=== PATIENT | female | born 1990 | race African-American/Black ===

== ENCOUNTER 2016-09-25 15:00 | Emergency (ER) | payer OTHER ==
[2016-09-25 15:18] VITALS: BP 124/76; PULSE 96; RESP 20; TEMP 97.5
--- NOTE | 2016-09-25 15:21 | ED ---
General Adult HPI - General Chief complaint: Upper Respiratory Infection Stated complaint: Congestion Time Seen by Provider: 09/25/16 15:09 Source: patient, RN notes reviewed Mode of arrival: ambulatory Limitations: no limitations - History of Present Illness Initial comments: A 18-year-old female presents with congestion and ear fullness 7 days. Patient also complains of sinus headache. Patient denies any neck pain, fever/ chills, nausea/vomiting/diarrhea. Patient states many members of her family are also sick with similar symptoms. Patient has been taking xlnw-vqm-enjpcdp cold medicines with no improvement. Patient denies any cough or shortness of breath. Patient denies any recent chest pain, abdominal pain, back pain, numbness, tingling, hematuria, photophobia, diplopia or visual changes, or any other complaints. Patient denies any chance of being today. - Related Data Previous Rx's Medication Instructions Recorded Azithromycin [Zithromax Z-pack] 250 mg PO DIRECTED #6 tab 09/25/16 Allergies Allergy/AdvReac Type Severity Reaction Status Date / Time fentanyl Allergy Anaphylaxis Verified 09/25/16 15:18 morphine Allergy Swelling Verified 09/25/16 15:18 Penicillins Allergy Rash/Hives Verified 09/25/16 15:18 Review of Systems ROS Statement: Those systems with pertinent positive or pertinent negative responses have been documented in the HPI. ROS Other: All systems not noted in ROS Statement are negative. Past Medical History Past Medical History: Asthma Additional Past Medical History / Comment(s): back pain, seasonal allergies History of Any Multi-Drug Resistant Organisms: None Reported Past Surgical History: Orthopedic Surgery Additional Past Surgical History / Comment(s): LEFT HIP SURG; RIGHT KNEE SURG Past Psychological History: No Psychological Hx Reported Smoking Status: Never smoker Past Alcohol Use History: None Reported Past Drug Use History: None Reported General Exam - General Exam Comments Initial Comments: General: The patient is awake and alert, in no distress, and does not appear acutely ill. Eye: Pupils are equal, round and reactive to light, extra-ocular movements are intact. No nystagmus. There is normal conjunctiva bilaterally. No signs of icterus. Ears: TMs pink and pearly with intact cone light bilaterally. Normal external ear canals. Nose: Nasal turbinates edematous and erythematous with mild drainage present. There is discomfort with palpation of the frontal and maxillary sinuses. Mouth and throat: Mild erythema of the posterior pharynx, no tonsillar enlargement or exudates. There are moist mucous membranes and no oral lesions. Neck: The neck is supple, there is no tenderness or JVD. Cardiovascular: There is a regular rate and rhythm. No murmur, rub or gallop is appreciated. Respiratory: Lungs are clear to auscultation, respirations are non-labored, breath sounds are equal. No wheezes, stridor, rales, or rhonchi. Musculoskeletal: Normal ROM, no tenderness. Strength 5/5. Sensation intact. Radial Pulses equal bilaterally 2+. Neurological: A&O x 3. CN II-XII intact, There are no obvious motor or sensory deficits. Coordination appears grossly intact. Speech is normal. Skin: Skin is warm and dry and no rashes or lesions are noted. Psychiatric: Cooperative, appropriate mood & affect, normal judgment. Limitations: no limitations Course Vital Signs 09/25/16 15:16 Temperature 97.5 F L Pulse Rate 96 Respiratory 20 Rate Blood Pressure 124/76 O2 Sat by Pulse 99 Oximetry Medical Decision Making - Medical Decision Making This is a 18-year-old female presents with congestion 7 days. On physical exam nasal turbinates edematous and erythematous with mild drainage present. There is discomfort with palpation of the frontal and maxillary sinuses. Patient is afebrile in the EC. Lungs are clear to auscultation bilaterally. Respirations are 20 and patient is 99% on room air. Discussed with patient that this is consistent with a sinus infection. Discussed that most cases are viral. Discussed continuation of bebs-jql-rtosrdh cold medicines, Claritin, nasal rinses nasal sprays. Discussed the patient will be given a prescription for azithromycin if her symptoms do not improve the next 3-5 days. Discussed close follow-up with her family physician. Discussed return parameters. Discussed that patient should follow up with PCP in one to 2 days or return to the EC for any worsening symptoms or for any further concerns. Patient was receptive to this plan and patient will be discharged home. Disposition Clinical Impression: Sinusitis Disposition: HOME SELF-CARE Condition: Good Instructions: Sinusitis (ED) Additional Instructions: Please continue use of [id number] decongestants, Claritin, nasal sprays or nasal rinses. Please use antibiotic if symptoms do not improve within the next 3-5 days or if symptoms are significantly worse. Please use medication as discussed. Please follow-up with family doctor in the next 2 days of symptoms have not improved. Please return to emergency room if the symptoms increase or worsen or for any other concerns. Prescriptions: Azithromycin [Zithromax Z-pack] 250 mg PO DIRECTED #6 tab Referrals: Jessy Vogt DO [Primary Care Provider] - 1-2 days Time of Disposition: 15:27
== END 2016-09-25 15:36 | disposition home or self-care (01) ==
LOC: EC 15:00
DX: J32.9 Chronic sinusitis, unspecified (principal); Z88.0 Allergy status to penicillin; Z88.5 Allergy status to narcotic agent
CPT/HCPCS: 99283

== ENCOUNTER 2017-02-10 19:05 | Emergency (ER) | payer OTHER ==
[2017-02-10 19:21] VITALS: BP 115/72; PULSE 79; RESP 18; TEMP 99.2
--- NOTE | 2017-02-10 19:39 | ED ---
Skin/Abscess/FB HPI - General Chief complaint: Skin/Abscess/Foreign Body Stated complaint: rash on waist Time Seen by Provider: 02/10/17 19:21 Source: patient, RN notes reviewed Mode of arrival: ambulatory Limitations: no limitations - History of Present Illness Initial comments: Patient is a 26-year-old female presents to the emergency room for evaluation of rash. Patient states she's noticed a rash forming under her lower abdominal fold and under her right breast about 2 weeks ago. Patient states it's very itchy and irritating. Patient states she's tried to clean it with no relief of symptoms. Patient denies fevers or chills. Patient denies drainage or swelling from the area. Patient denies any new body washes, lotions, shampoos. - Related Data Previous Rx's Medication Instructions Recorded Nystatin [Nystop] 1 applic TOPICAL TID 10 Days 02/10/17 Allergies Allergy/AdvReac Type Severity Reaction Status Date / Time fentanyl Allergy Anaphylaxis Verified 02/10/17 19:20 morphine Allergy Swelling Verified 02/10/17 19:20 Penicillins Allergy Rash/Hives Verified 02/10/17 19:20 Review of Systems ROS Statement: Those systems with pertinent positive or pertinent negative responses have been documented in the HPI. ROS Other: All systems not noted in ROS Statement are negative. Past Medical History Past Medical History: Asthma Additional Past Medical History / Comment(s): back pain, seasonal allergies History of Any Multi-Drug Resistant Organisms: None Reported Past Surgical History: Orthopedic Surgery Additional Past Surgical History / Comment(s): LEFT HIP SURG; RIGHT KNEE SURG Past Psychological History: No Psychological Hx Reported Smoking Status: Never smoker Past Alcohol Use History: None Reported Past Drug Use History: None Reported General Exam - General Exam Comments Initial Comments: Sitting in exam room, no acute distress. Limitations: no limitations General appearance: alert, in no apparent distress Head exam: Present: atraumatic, normocephalic, normal inspection Eye exam: Present: normal appearance ENT exam: Present: normal exam Neck exam: Present: normal inspection Respiratory exam: Present: normal lung sounds bilaterally. Absent: respiratory distress Cardiovascular Exam: Present: regular rate, normal rhythm, normal heart sounds Extremities exam: Present: normal inspection Back exam: Present: normal inspection Neurological exam: Present: alert, oriented X3, CN II-XII intact, normal gait Psychiatric exam: Present: normal affect, normal mood Skin exam: Present: warm, dry, other (Erythematous, moist rash under her right breast and under abdominal skin fold, consistent with yeast infection) Course Vital Signs 02/10/17 19:19 Temperature 99.2 F Pulse Rate 79 Respiratory 18 Rate Blood Pressure 115/72 O2 Sat by Pulse 99 Oximetry Medical Decision Making - Medical Decision Making Patient is a 26-year-old female since emergency room for evaluation of rash. Rash consistent with candidiasis intertrigo. Will place patient on Nystop. Advised patient to follow-up with primary care provider for reevaluation in 24- 48 hours. Patient states she understands everything that was discussed with her. Return parameters discussed. Case discussed with Dr. Suggs. Disposition Clinical Impression: Candidal intertrigo Disposition: HOME SELF-CARE Condition: Good Instructions: Skin Yeast Infection (ED) Additional Instructions: Keep area clean and dry. Apply powder as directed. Please follow up with primary care provider for reevaluation in 24-48 hours. If any new symptom arises or symptoms worsen, return to ER as soon as possible. Prescriptions: Nystatin [Nystop] 1 applic TOPICAL TID 10 Days Referrals: Jessy Vogt DO [Primary Care Provider] - 1-2 days Time of Disposition: 19:37
== END 2017-02-10 19:45 | disposition home or self-care (01) ==
LOC: EC 19:05
DX: B37.2 Candidiasis of skin and nail (principal); Z88.0 Allergy status to penicillin; Z88.5 Allergy status to narcotic agent
CPT/HCPCS: 99282

== ENCOUNTER 2017-02-13 23:18 | Emergency (ER) | payer OTHER ==
[2017-02-13 23:22] VITALS: BP 134/75; PULSE 89; RESP 18; TEMP 98.5
[2017-02-13] MEDS ORDERED: CEPHALEXIN 500MG STARTER PACK 4 CAP BTL PO STA (23:31)
--- NOTE | 2017-02-13 23:40 | ED ---
Skin/Abscess/FB HPI - General Chief complaint: Skin/Abscess/Foreign Body Stated complaint: Burn Time Seen by Provider: 02/13/17 23:23 Source: patient, RN notes reviewed, old records reviewed Mode of arrival: ambulatory Limitations: no limitations - History of Present Illness Initial comments: This is a 26-year-old female presents emergency Department with chief complaint of a rash and irritation over her lower abdominal folds. Patient reports that she was seen in the emergency department 2 days ago and started on nystatin cream. Patient reports that it was doing somewhat better over the original area but has now spread to the left lower side. She reports that she's noticed a little bit of white drainage from the area. She reports that she's noticed some warmth also extending from the area. Patient denies any fever or chills. Denies any other areas of redness or itching. Patient states that she thinks that it became worse after he scratched it yesterday and noticed a blister started to develop. Patient denies any recent fever, chills, shortness of breath , chest pain, back pain, abdominal pain, nausea vomiting, numbness or tingling, dysuria or hematuria, constipation or diarrhea, headaches or visual changes, or any other current symptoms - Related Data Home Medications Medication Instructions Recorded Confirmed Albuterol Inhaler [Ventolin Hfa 2 puff INHALATION RT-QID PRN 02/13/17 02/13/17 Inhaler] Previous Rx's Medication Instructions Recorded Cephalexin [Keflex] 500 mg PO Q6HR #28 cap 02/13/17 Nystatin 100,000 Unit/gm Powd 1 applic TOPICAL BID #60 gm 02/13/17 [Mycostatin Powder] Allergies Allergy/AdvReac Type Severity Reaction Status Date / Time fentanyl Allergy Anaphylaxis Verified 02/13/17 23:36 morphine Allergy Rash/Hives Verified 02/13/17 23:36 Penicillins Allergy Unknown Verified 02/13/17 23:36 Childhood Review of Systems ROS Statement: Those systems with pertinent positive or pertinent negative responses have been documented in the HPI. ROS Other: All systems not noted in ROS Statement are negative. Past Medical History Past Medical History: Asthma Additional Past Medical History / Comment(s): back pain, seasonal allergies History of Any Multi-Drug Resistant Organisms: None Reported Past Surgical History: Orthopedic Surgery Additional Past Surgical History / Comment(s): LEFT HIP SURG; RIGHT KNEE SURG Past Psychological History: No Psychological Hx Reported Smoking Status: Never smoker Past Alcohol Use History: None Reported Past Drug Use History: None Reported General Exam - General Exam Comments Initial Comments: Physical well-appearing 18-year-old female. No acute distress. Limitations: no limitations General appearance: alert Head exam: Present: atraumatic, normocephalic, normal inspection Eye exam: Present: normal appearance, PERRL, EOMI. Absent: scleral icterus, conjunctival injection, periorbital swelling ENT exam: Present: normal exam, mucous membranes moist Neck exam: Present: normal inspection. Absent: tenderness, meningismus, lymphadenopathy Respiratory exam: Present: normal lung sounds bilaterally. Absent: respiratory distress, wheezes, rales, rhonchi, stridor Cardiovascular Exam: Present: regular rate, normal rhythm, normal heart sounds. Absent: systolic murmur, diastolic murmur, rubs, gallop, clicks GI/Abdominal exam: Present: soft, normal bowel sounds, other (Patient has area of erythema over the lower left side of the abdomen. It appears to have a superficial candidate I'll infection. There is some minor drainage from the area.). Absent: distended, tenderness, guarding, rebound, rigid Extremities exam: Present: normal inspection, full ROM, normal capillary refill. Absent: tenderness, pedal edema, joint swelling, calf tenderness Back exam: Present: normal inspection Neurological exam: Present: alert, oriented X3, CN II-XII intact Psychiatric exam: Present: normal affect, normal mood Skin exam: Present: warm, dry, intact, normal color. Absent: rash Course Vital Signs 02/13/17 23:19 Temperature 98.5 F Pulse Rate 89 Respiratory 18 Rate Blood Pressure 134/75 O2 Sat by Pulse 98 Oximetry Medical Decision Making - Medical Decision Making This is a 26-year-old female presents emergency Department with chief complaint of a rash and irritation over her lower abdominal folds. Patient reports that she was seen in the emergency department 2 days ago and started on nystatin cream. Patient reports that it was doing somewhat better over the original area but has now spread to the left lower side. She reports that she's noticed a little bit of white drainage from the area. Patient has an area of erythema over the lower abdominal fold. It appears to be a cellulitis as well as a superficial candidate I'll infection. Patient will be started on Keflex, advised to continue to use the nystatin cream. Patient agrees to this treatment plan will comply. Return parameters were discussed. I also luzmaria a line around the area of redness and advised her to monitor this headache is worse to return to emergency department. Disposition Clinical Impression: Candidal intertrigo, Abdominal wall cellulitis Disposition: HOME SELF-CARE Condition: Good Instructions: Cellulitis (ED) Additional Instructions: Patient advised to complete entire antibiotic prescription. Continue to keep the area dry and to apply the nystatin cream and powder over the area. Monitor for any increased signs of redness and to return to the emergency department if he continues to worsen after 2 days of antibiotic. Prescriptions: Cephalexin [Keflex] 500 mg PO Q6HR #28 cap Nystatin 100,000 Unit/gm Powd [Mycostatin Powder] 1 applic TOPICAL BID #60 gm Referrals: Jessy Vogt DO [Primary Care Provider] - 1-2 days Time of Disposition: 23:38
== END 2017-02-13 23:52 | disposition home or self-care (01) ==
LOC: EC 23:18
DX: B37.2 Candidiasis of skin and nail (principal); L03.311 Cellulitis of abdominal wall; Z88.0 Allergy status to penicillin; Z88.1 Allergy status to other antibiotic agents; Z88.5 Allergy status to narcotic agent
CPT/HCPCS: 87070; 87077; 87186; 87205; 99284

== ENCOUNTER 2017-03-03 16:02 | Emergency (ER) | payer OTHER ==
[2017-03-03 16:13] VITALS: BP 119/73; PULSE 80; RESP 20; TEMP 98.5
--- NOTE | 2017-03-03 16:22 | ED ---
Skin/Abscess/FB HPI - General Chief complaint: Skin/Abscess/Foreign Body Stated complaint: Rash/abscess Time Seen by Provider: 03/03/17 16:19 Source: patient, RN notes reviewed Mode of arrival: ambulatory Limitations: no limitations - History of Present Illness Initial comments: 26-year-old female presents emergency Department chief complaint rash. She stateslast few days. She states it's in her axilla regions, abdomen region. States her small bump November. She states that she said he is infection in past and that maybe this is similar. She states they are very itchy and states that she scratched some. Patient denies any fevers or chills. Patient denies any new living environment new products including soaps, lotions, detergents - Related Data Home Medications Medication Instructions Recorded Confirmed Albuterol Inhaler [Ventolin Hfa 2 puff INHALATION RT-QID PRN 02/13/17 02/13/17 Inhaler] Previous Rx's Medication Instructions Recorded Cephalexin [Keflex] 500 mg PO Q6HR #28 cap 02/13/17 Nystatin 100,000 Unit/gm Powd 1 applic TOPICAL BID #60 gm 02/13/17 [Mycostatin Powder] Permethrin 5% Cream [Elimite] 1 applic TOPICAL ONCE #60 gram 03/03/17 Triamcinolone 0.1% Cream [Kenalog] 1 applicatio TOPICAL BID #15 gram 03/03/17 hydrOXYzine HCL [Atarax] 25 mg PO TID PRN #15 tab 03/03/17 Allergies Allergy/AdvReac Type Severity Reaction Status Date / Time fentanyl Allergy Anaphylaxis Verified 03/03/17 16:13 morphine Allergy Rash/Hives Verified 03/03/17 16:13 Penicillins Allergy Unknown Verified 03/03/17 16:13 Childhood Review of Systems ROS Statement: Those systems with pertinent positive or pertinent negative responses have been documented in the HPI. ROS Other: All systems not noted in ROS Statement are negative. Past Medical History Past Medical History: Asthma Additional Past Medical History / Comment(s): back pain, seasonal allergies History of Any Multi-Drug Resistant Organisms: None Reported Past Surgical History: Orthopedic Surgery Additional Past Surgical History / Comment(s): LEFT HIP SURG; RIGHT KNEE SURG Past Psychological History: No Psychological Hx Reported Smoking Status: Never smoker Past Alcohol Use History: None Reported Past Drug Use History: None Reported General Exam Limitations: no limitations General appearance: alert, in no apparent distress Neck exam: Present: normal inspection. Absent: tenderness, meningismus, lymphadenopathy Respiratory exam: Present: normal lung sounds bilaterally. Absent: respiratory distress, wheezes, rales, rhonchi, stridor Cardiovascular Exam: Present: regular rate, normal rhythm, normal heart sounds. Absent: systolic murmur, diastolic murmur, rubs, gallop, clicks Skin exam: Present: rash (Small areas of papular rash with excoriations noted to right axilla, torso region) Course Vital Signs 03/03/17 16:11 Temperature 98.5 F Pulse Rate 80 Respiratory 20 Rate Blood Pressure 119/73 O2 Sat by Pulse 99 Oximetry Medical Decision Making - Medical Decision Making 26-year-old female presented for rash. Patient appears to have some sort of insect bites. Patient denies any new living environment. Patient be given Atarax Elimite and Kenalog cream. Disposition Clinical Impression: Insect bites Disposition: HOME SELF-CARE Condition: Stable Instructions: Insect Bite or Sting (ED) Additional Instructions: Please return to the Emergency Department if symptoms worsen or any other concerns. Prescriptions: hydrOXYzine HCL [Atarax] 25 mg PO TID PRN #15 tab PRN Reason: itchiness Permethrin 5% Cream [Elimite] 1 applic TOPICAL ONCE #60 gram Triamcinolone 0.1% Cream [Kenalog] 1 applicatio TOPICAL BID #15 gram Referrals: Jessy Vogt DO [Primary Care Provider] - 1-2 days Time of Disposition: 16:22
== END 2017-03-03 16:25 | disposition home or self-care (01) ==
LOC: EC 16:02
DX: S40.861A Insect bite (nonvenomous) of right upper arm, initial encounter (principal); S30.861A Insect bite (nonvenomous) of abdominal wall, initial encounter; Z88.0 Allergy status to penicillin; Z88.5 Allergy status to narcotic agent; W57.XXXA Bitten or stung by nonvenomous insect and other nonvenomous arthropods, initial encounter
CPT/HCPCS: 99282

== ENCOUNTER → 2019-03-14 | Outpatient (CLI) | payer OTHER ==
--- NOTE | 2019-03-14 14:04 | CT ---
EXAMINATION TYPE: CT sinus wo con DATE OF EXAM: 03/14/2019 COMPARISON: None HISTORY: 28-year-old female Chronic sinusitis. Otitis media left ear. CT DLP: 572 mGycm Automated exposure control for dose reduction was used. TECHNIQUE: Noncontrast axial views of the paranasal sinuses were obtained. Coronal reconstructions pe rformed. FINDINGS: PARANASAL SINUSES: Moderate mucosal thickening left maxillary and bilateral ethmoid sinuses. Frontal sinuses are relatively pneumatized. Scattered trace mucosal thickening within the sphenoid sinuses and mild within the right maxillary si nus. 8 mm mucosal retention cyst posterior left sphenoid sinus. There is no air-fluid level. Reactive sean- osteogenesis is not seen. There is no destruction of the osseous scott of the paranasal sinuses. THE NASAL CAVITY: The osteomeatal complexes are patent. Minimal undulation of the nasal septum. The imaged brain and orbits are normal in appearance. Mastoid air cells and middle ear cavities are well pneumatized. Reformatted images confirm above findings. IMPRESSION: 1. Moderate chronic left maxillary and bilateral ethmoid sinus disease. 2. Additional scattered trace to mild sphenoid and right maxillary sinus disease. 3. The mastoid air cells and middle ear cavities are clear.
== END | disposition home or self-care (01) ==
LOC: RADCTMAIN 12:23
PROVIDERS: ATTEND Internal Medicine
DX: J32.0 Chronic maxillary sinusitis (principal); H66.92 Otitis media, unspecified, left ear
CPT/HCPCS: 70486

== ENCOUNTER → 2019-06-16 | Outpatient (CLI) | payer OTHER ==
--- NOTE | 2019-06-17 09:51 | CT ---
EXAMINATION TYPE: CT iac wo/w con DATE OF EXAM: 06/16/2019 COMPARISON: CT 04/02/2011 HISTORY: Left ear hearing loss x couple of months. CT DLP: 285.4 mGycm Automated exposure control for dose reduction was used. CONTRAST: CT scan of the IACs is performed without and with IV Contrast, patient injected with 100ml mL of Isov ue 300. FINDINGS: The external auditory canals are patent bilaterally. Mastoid air cells show no evidence of abnormal opacification bilaterally. The middle ear ossicles are symmetric and unremarkable. There is no evidence of suspicious surrounding soft tissue density to suggest cholesteatoma. The scutum is preserved bilaterally. The cochlea and the semicircular canals are symmetric and unremarkable. Ves tibular aqueduct and internal carotid canal appear unremarkable. Temporomandibular joints are mainta ined bilaterally. No abnormal enhancement following contrast administration. Postop changes noted to the posterior occipital bone inferiorly as on prior IMPRESSION: No significant abnormality seen to account for patient's symptoms.
== END | disposition home or self-care (01) ==
LOC: RADCTMAIN 17:37
PROVIDERS: ATTEND Otolaryngology Otolaryngology/Facial Plastic Surgery
DX: H93.293 Other abnormal auditory perceptions, bilateral (principal)
CPT/HCPCS: 70482; Q9967

== ENCOUNTER → 2019-07-29 | Outpatient (CLI) | payer OTHER ==
--- NOTE | 2019-07-30 10:06 | MR ---
EXAMINATION TYPE: MR brain and iac wo/w con DATE OF EXAM: 07/29/2019 5:32 PM COMPARISON: April 27, 2013 HISTORY: Hearing loss TECHNIQUE: Multiplanar and multispin-echo imaging of the brain was performed both before and after the administr ation of contrast. High-resolution images are obtained of the internal auditory canals performed uti lizing 9 mL intravenous Gadavist contrast. The ventricles, basal cisterns and sulci overlying the cerebral convexities are within normal limits. There is no evidence for midline shift or mass effect. Acute intracranial hemorrhage or extra-axial collection is not evident. There are no abnormal areas of increased or decreased signal intensity within the brain parenchyma. High-resolution imaging of the internal auditory canals fails demonstrate evidence for an enhancing a coustic schwannoma or cerebellopontine cistern angle mass. Following contrast administration, there is no evidence for pathologic enhancement or enhancing mass. The paranasal sinuses and mastoid air cells are well-aerated. 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 Decompressive craniotomy changes redemonstrated. IMPRESSION: 1. No evidence of acoustic schwannoma or cerebellopontine angle mass. 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
== END ==
LOC: RADMRIMAIN 16:38
PROVIDERS: ATTEND Otolaryngology Otolaryngology/Facial Plastic Surgery
DX: G93.5 Compression of brain (principal)
CPT/HCPCS: 70553; A9585

== ENCOUNTER → 2019-11-24 | Outpatient (CLI) | payer OTHER ==
--- NOTE | 2019-11-24 21:30 | CT ---
EXAMINATION TYPE: CT sinus wo con DATE OF EXAM: 11/24/2019 COMPARISON: 03/14/2019 HISTORY: Deviated nasal septum, hypertrophy CT DLP: 526.40 mGycm CONTRAST: None The paranasal sinuses are examined in the axial plane at 2 mm thick sections. Reconstructed images i n the coronal plane were obtained. There is mild dental amalgam scatter artifact The maxillary sinuses are clear. The ethmoid air cells are clear. The sphenoid sinuses are clear. The frontal sinuses are clear. The septum is evaluated. There is mild septal deviation to the right. The ostiomeatal units are patent. IMPRESSIONS: 1. No acute paranasal sinus disease. 2. Septal deviation to the right
== END | disposition home or self-care (01) ==
LOC: RADCTMAIN 16:46
PROVIDERS: ATTEND Otolaryngology Otolaryngology/Facial Plastic Surgery
DX: J34.2 Deviated nasal septum (principal); J30.9 Allergic rhinitis, unspecified
CPT/HCPCS: 70486

== ENCOUNTER 2020-11-30 10:17 | Day surgery (SDC) | payer OTHER ==
[~2020-11-30 10:17] MED LIST: DEXAMETHASONE SOD PHOSPHATE 4 MG/ML 1 ML VIAL IV ONE; LACTATED RINGERS 1,000 ML IV SCH; LIDOCAINE 1% (10MG/ML) FOR IV START INTRADERMA PRN; MIDAZOLAM 2 MG/2 ML VIAL IV PRN; ONDANSETRON 4 MG/2 ML VIAL IVP ONE; Pre Op ABX Message 1 EACH MISC MISCELLANE ONE
[2020-11-30] MEDS ORDERED: MIDAZOLAM 2 MG/2 ML VIAL IVP ONE (11:49)
[2020-11-30] MEDS ORDERED: CLINDAMYCIN 600 MG in DEXTROSE 5% IN WATER 50 ML IVPB STA ×2 (11:51)
[2020-11-30] MEDS ORDERED: SUCCINYLCHOLINE CHLORIDE 100 MG/5 ML SYR IV ONE (12:04)
[2020-11-30] MEDS ORDERED: MIDAZOLAM 2 MG/2 ML VIAL ONE (12:04)
[2020-11-30] MEDS ORDERED: PHENYLEPHRINE-0.9% NACL SYG 1,000 MCG/10 ML SYRINGE ONE (12:04)
[2020-11-30] MEDS ORDERED: LIDOCAINE 1% INJ 10MG/ML (20 ML MDV) ONE (12:04)
[2020-11-30] MEDS ORDERED: ROPIVACAINE 5 MG/ML 30 ML VIAL ONE (12:04)
[2020-11-30] MEDS ORDERED: PROPOFOL 10 MG/ML 20 ML VIAL IV ONE (12:04)
[2020-11-30] MEDS ORDERED: ROCURONIUM 10 MG/ML (5 ML VIAL) IV ONE (12:04)
[2020-11-30] MEDS ORDERED: DEXAMETHASONE SOD PHOSPHATE 4 MG/ML 1 ML VIAL ONE (12:04)
[2020-11-30] MEDS ORDERED: fentaNYL (PF) 50 MCG/ML 2 ML AMP ONE (12:04)
[2020-11-30] MEDS ORDERED: methylPREDNISolone ACETATE 40 MG/ML 1 ML VIAL INJ ONE (12:54)
[2020-11-30] MEDS ORDERED: LACTATED RINGERS 1,000 ML IV ONE (12:55)
--- NOTE | 2020-11-30 13:11 | XR ---
Limited calcaneus HISTORY: Heel spur Single intraoperative C-arm image documents the procedure
--- NOTE | 2020-11-30 13:12 | FL ---
Fluoroscopy HISTORY: Calcaneal spur 9 seconds fluoroscopy time supplied to the referring clinician. 1 intraoperative C-arm images docume nt the procedure. See dictated report from surgery.
[2020-11-30 13:29] VITALS: TEMP 98.8
[2020-11-30] MEDS: HYDROmorphone 0.5 MG/0.5 ML SYRINGE IVP PRN ×2 (13:31→13:36)
--- NOTE | 2020-11-30 13:35 | P.OP ---
Preoperative Diagnosis: 1. Plantar fasciitis right foot 2. Gastroc equinus right leg 3. Plantar calcaneal spur right foot Postoperative Diagnosis: 1. Same 2. Same 3. Same Procedure(s) Performed: 1. Gastroc recession right leg 2. Plantar fascial release right foot 3. Excision of calcaneal spur right foot Implants: None Anesthesia: VIDYA Surgeon: Ahsan Nevarez Estimated Blood Loss (ml): 2 Pathology: none sent Condition: stable Disposition: PACU Description of Procedure: Prior to the patient being brought to the operating room, anesthesia administered nerve block on the right leg utilizing ultrasonic guidance and mild sedation. The patient was then brought into the operating room and placed on table supine position. Timeout was taken to confirm correct patient identifiers, correct procedure, and correct site of surgery. When the room was in agreement the patient was placed under general anesthetic. A well-padded tourniquet was placed on the right thigh. A bump was placed underneath the left hip to further externally rotate the right leg. And then the right leg was prepped and draped usual manner. The leg was exsanguinated and the tourniquet inflated to 250 mmHg Attention was first directed to the posterior aspect of the right leg where a linear incision was made just distal to the gastroc muscle belly. The incision was deepened down through the subcutaneous layer being careful to identify, avoid, and retract all neurovascular structures and cauterize any bleeding ves sels. Blunt dissection was continued down to the deep fascia. The deep fascia was incised exposing the aponeurosis of the gastroc muscle belly. The deep fascia was bluntly reflected off of the aponeurosis. Scalpel was used to create a transverse incision from lateral to medial through the aponeurosis to the level the muscle belly taking care to not cause excessive trauma to the muscle tissue itself. Once that was completed ankle was dorsiflexed and a 2 cm gap was created between the 2 ends of the aponeurosis, indicating a full release. The wound was then irrigated thoroughly with antibiotic saline the subcutaneous closure was done with 3-0 Monocryl and skin closure done with 30 side effects in a running subcuticular manner. Then attention was directed to the right foot. With the right foot essentially in a lateral position of the bed the C-arm was brought in so that anatomic landmarks could be identified. And the metallic pointer was used to identify the plantar calcaneal spur and a skin line was made in that area. The incision was made through that skin line and deepened through the subcutaneous layer being careful to identify, avoid, and retract any neurovascular structures and cauterize any bleeding vessels. Blunt dissection was continued down to level of the plantar fascia at its insertion on the medial calcaneal tuberosity. Blunt instrumentation was inserted dorsally and plantarly to the plantar fascial to free the surrounding soft tissue. A midline remi was made to identify the center of the calcaneus on the plantar surface of the skin of the right heel. Sharp instrumentation was used to resect the plantar fascial to this point. This is easily palpable as it was being done. The great toe was dorsiflexed during the course of the release and a palpable release could be felt. Once the plantar fascia release was completed, a pituitary Ronguer was inserted down to level of the fracture calcaneal spur. Under fluoroscopic visualization the spur was able to be grasped with the instrument and removed. Several attempts were performed to remove as much of the spurs possible. Once that was completed a rasp was used to smooth the bone surface in the area. Fluoroscopy confirmed complete resection of the spur. The wound was then irrigated with antibiotic saline. The subcutaneous tissue was closed with 3-0 Monocryl and the skin closure done with 3-0 nylon Dermabond glue was applied to the Incision only and allowed to dry then Steri- Strips are placed across incision. Nonadherent gauze placed over both incisions and a bulky dry dressing applied to the right leg ankle and foot. The tourniquet was released and capillary refill return to all digits on the right foot. The patient was then placed in a well molded, well-padded plaster posterior mold sugar tong splint. The ankle was held in neutral position as the splint dried. Once the splint had dried anesthesia was reversed and the patient was taken recovery with vital signs stable.
[2020-11-30 13:41] VITALS: RESP 16
[2020-11-30] MEDS ORDERED: HYDROcodone/APAP 5-325MG 1 EACH TAB ONE (15:13)
[2020-11-30] MEDS ORDERED: HYDROcodone/APAP 5-325MG 1 EACH TAB PO ONE (15:15)
[2020-11-30 15:28] VITALS: BP 111/70; PULSE 80
--- NOTE | 2020-12-02 20:59 | P.ANPRN ---
Procedure Note - Anesthesia - Nerve Block Performed Right Popliteal Single Time Out Performed: Yes Date of Procedure: 11/30/20 Procedure Start Time: 10:38 Procedure Stop Time: 10:41 Location of Patient: PreOp Indication: Acute Post-Operative Pain, Requested by Surgeon Sedation Type: Sedate with meaningful contact maintained Preparation: Sterile Prep Position: Left Lateral Needle Types: Pajunk Needle Gauge: 21 Ultrasound used to visualize needle placement: Yes Ultrasound used to observe medication spread: Yes Blood Aspirated: No Pain Paresthesia on Injection Noted: No Resistance on Injection: Normal Image Stored and Saved: Yes Events: Uneventful and Well Tolerated (ropi .5% 20cc plus dexamethasone 4mg)
--- NOTE | 2020-12-02 21:00 | P.ANPRN ---
Procedure Note - Anesthesia - Nerve Block Performed Right Saphenous/Obturator Single Time Out Performed: Yes Date of Procedure: 11/30/20 Procedure Start Time: 10:42 Procedure Stop Time: 10:45 Location of Patient: PreOp Indication: Acute Post-Operative Pain, Requested by Surgeon Sedation Type: Sedate with meaningful contact maintained Preparation: Sterile Prep Position: Supine Needle Types: Pajunk Needle Gauge: 21 Ultrasound used to visualize needle placement: Yes Ultrasound used to observe medication spread: Yes Blood Aspirated: No Pain Paresthesia on Injection Noted: No Resistance on Injection: Normal Image Stored and Saved: Yes Events: Uneventful and Well Tolerated (ropi .5% 15cc)
== END 2020-11-30 16:08 | disposition home or self-care (01) ==
LOC: OR 10:17
PROVIDERS: ATTEND Podiatrist
DX: M72.2 Plantar fascial fibromatosis (principal); M21.6X1 Other acquired deformities of right foot; M77.31 Calcaneal spur, right foot; M62.471 Contracture of muscle, right ankle and foot; S92.044A Nondisplaced other fracture of tuberosity of right calcaneus, initial encounter for closed fracture; F41.9 Anxiety disorder, unspecified; J45.909 Unspecified asthma, uncomplicated; K08.89 Other specified disorders of teeth and supporting structures; Z79.899 Other long term (current) drug therapy; Z79.1 Long term (current) use of non-steroidal anti-inflammatories (NSAID); Z97.3 Presence of spectacles and contact lenses; Z88.0 Allergy status to penicillin; Z88.5 Allergy status to narcotic agent; Z98.890 Other specified postprocedural states; Y93.9 Activity, unspecified
CPT/HCPCS: 27687; 28119; 64447; 81025; 64445; 76942; 73650; J2250; J1030; J1100; J2405; J2001; J3010; J2795; J2370; J0330; J2704; J1170; 64450

== ENCOUNTER 2021-03-06 10:41 | Emergency (ER) | payer OTHER ==
[2021-03-06 10:56] VITALS: TEMP 98.7
[2021-03-06] MEDS ORDERED: KETOROLAC 15 MG/ML 1 ML VIAL IVP STA (11:04)
[2021-03-06] MEDS ORDERED: SODIUM CHLORIDE 0.9% 1,000 ML IV STA (11:04)
[2021-03-06] MEDS ORDERED: SODIUM CHLORIDE 0.9% 500 ML 500 ML IV STA (11:04)
[2021-03-06] MEDS ORDERED: ONDANSETRON 4 MG/2 ML VIAL IVP STA (11:04)
[2021-03-06 11:25] LABS: Basophils % (A) 1 %; Eosinophils # (A) 0.1 k/uL (0-0.7); Eosinophils % (A) 2 %; HCT 40.2 % (34.0-46.0); HGB 13.1 gm/dL (11.4-16.0); Lymphocytes # (A) 1.7 k/uL (1.0-4.8); Lymphocytes % (A) 25 %; MCH 30.5 pg (25.0-35.0); MCHC 32.5 g/dL (31.0-37.0); MCV 93.7 fL (80.0-100.0); Mean Platelet Volume 9.9; Monocytes # (A) 0.3 k/uL (0-1.0); Monocytes % (A) 4 %; Neutrophils # (A) 4.4 k/uL (1.3-7.7); Neutrophils % (A) 67 %; Platelet Count 206 k/uL (150-450); RBC 4.29 m/uL (3.80-5.40); WBC 6.5 k/uL (3.8-10.6)
[2021-03-06 11:36] LABS: ALT 12 U/L (4-34); AST 19 U/L (14-36); African American GFR (CKD) >90 (>60 ml/min/1.73 sqM); Alkaline Phosphatase 73 U/L (38-126); Amylase 58 U/L (30-110); Anion Gap 6 mmol/L; Blood Urea Nitrogen 5 mg/dL (7-17); Calcium 8.9 mg/dL (8.4-10.2); Carbon Dioxide 20 mmol/L (22-30); Chloride 114 mmol/L (98-107); Glucose 91 mg/dL (74-99); Lipase 91 U/L (23-300); Non-African American GFR(CKD) >90 (>60 ml/min/1.73 sqM); Potassium 4.2 mmol/L (3.5-5.1); Sodium 140 mmol/L (137-145); Total Bilirubin 0.2 mg/dL (0.2-1.3); Total Protein 6.6 g/dL (6.3-8.2)
--- NOTE | 2021-03-06 11:50 | ED ---
Abdominal Pain HPI - General Chief Complaint: Abdominal Pain Stated Complaint: abd pain, nausea Time Seen by Provider: 03/06/21 10:57 Source: patient, RN notes reviewed Mode of arrival: ambulatory Limitations: no limitations - History of Present Illness Initial Comments: This a 30-year-old female presents emergency Department with chief complaint of left sided abdominal pain, left flank pain patient states pain started Thursday progressive worsening. Patient's [facility] yesterday and had lab work and states she was sent home with Juan. She states she's continuation of pain she does have a history kidney stones. Patient was found have moderate amount Bactrim but a urinalysis yesterday. No reported fever no diarrhea no constipation. - Related Data Home Medications Medication Instructions Recorded Confirmed Budesonide/Formoterol Fumarate 2 puff INHALATION RT-BID PRN 03/06/21 03/06/21 [Symbicort 80-4.5 Mcg Inhaler] Butalb/APAP/Caff 50-325-40Mg 1 tab PO BID PRN 03/06/21 03/06/21 [Fioricet 50-325-40] Ibuprofen [Motrin] 800 mg PO TID PRN 03/06/21 03/06/21 medroxyPROGESTERone [Depo-Provera] 150 mg IM Q90D 03/06/21 03/06/21 Previous Rx's Medication Instructions Recorded Ketorolac [Toradol] 10 mg PO Q8HR #15 tab 03/06/21 Metoclopramide [Reglan] 10 mg PO TID PRN #15 tab 03/06/21 Nitrofurantoin Monohyd/M-Cryst 100 mg PO Q12HR #10 cap 03/06/21 [Macrobid] Allergies Allergy/AdvReac Type Severity Reaction Status Date / Time fentanyl Allergy Anaphylaxis Verified 03/06/21 11:30 morphine Allergy Rash/Hives Verified 03/06/21 11:30 Penicillins Allergy Unknown Verified 03/06/21 11:30 Childhood Review of Systems ROS Statement: Those systems with pertinent positive or pertinent negative responses have been documented in the HPI. ROS Other: All systems not noted in ROS Statement are negative. Past Medical History Past Medical History: Asthma Additional Past Medical History / Comment(s): back pain, seasonal allergies History of Any Multi-Drug Resistant Organisms: None Reported Past Surgical History: Orthopedic Surgery Additional Past Surgical History / Comment(s): LEFT HIP SURG; RIGHT KNEE SURG, gastric resection Past Psychological History: No Psychological Hx Reported Smoking Status: Never smoker Past Alcohol Use History: None Reported Past Drug Use History: None Reported General Exam Limitations: no limitations General appearance: alert, in no apparent distress Head exam: Present: atraumatic, normocephalic, normal inspection Eye exam: Present: normal appearance, PERRL, EOMI. Absent: scleral icterus, conjunctival injection, periorbital swelling ENT exam: Present: normal exam, normal oropharynx, mucous membranes moist Neck exam: Present: full ROM Respiratory exam: Present: normal lung sounds bilaterally. Absent: respiratory distress, wheezes, rales, rhonchi, stridor Cardiovascular Exam: Present: regular rate, normal rhythm, normal heart sounds. Absent: systolic murmur, diastolic murmur, rubs, gallop, clicks GI/Abdominal exam: Present: soft, tenderness (Mild to moderate of left-sided), normal bowel sounds. Absent: distended, guarding, rebound, rigid Back exam: Present: CVA tenderness (L). Absent: CVA tenderness (R) Skin exam: Present: warm, dry, intact, normal color. Absent: rash Course Vital Signs 03/06/21 10:53 Temperature 98.7 F Pulse Rate 64 Respiratory 18 Rate Blood Pressure 127/87 O2 Sat by Pulse 98 Oximetry Medical Decision Making - Medical Decision Making 30-year-old presented for left flank pain. Patient's urinalysis yesterday shows evidence of urinary tract infection today there is minimal bacteria though she is symptomatic CT shows evidence of kidney stones in the past and stone. Patient we discharged in stable condition return parameters were discussed. - Lab Data Result diagrams: 03/06/21 11:14 03/06/21 11:14 Lab Results 03/06/21 03/06/21 03/06/21 Range/Units 11:14 11:14 11:14 WBC 6.5 (3.8-10.6) k/uL RBC 4.29 (3.80-5.40) m/uL Hgb 13.1 (11.4-16.0) gm/dL Hct 40.2 (34.0-46.0) % MCV 93.7 (80.0-100.0) fL MCH 30.5 (25.0-35.0) pg MCHC 32.5 (31.0-37.0) g/dL RDW 13.0 (11.5-15.5) % Plt Count 206 (150-450) k/uL MPV 9.9 Neutrophils % 67 % Lymphocytes % 25 % Monocytes % 4 % Eosinophils % 2 % Basophils % 1 % Neutrophils # 4.4 (1.3-7.7) k/uL Lymphocytes # 1.7 (1.0-4.8) k/uL Monocytes # 0.3 (0-1.0) k/uL Eosinophils # 0.1 (0-0.7) k/uL Basophils # 0.0 (0-0.2) k/uL Sodium 140 (137-145) mmol/L Potassium 4.2 (3.5-5.1) mmol/L Chloride 114 H (98-107) mmol/L Carbon Dioxide 20 L (22-30) mmol/L Anion Gap 6 mmol/L BUN 5 L (7-17) mg/dL Creatinine 0.63 (0.52-1.04) mg/dL Est GFR (CKD-EPI)AfAm >90 (>60 ml/min/1.73 sqM) Est GFR (CKD-EPI)NonAf >90 (>60 ml/min/1.73 sqM) Glucose 91 (74-99) mg/dL Plasma Lactic Acid Lex 0.8 (0.7-2.0) mmol/L Calcium 8.9 (8.4-10.2) mg/dL Total Bilirubin 0.2 (0.2-1.3) mg/dL AST 19 (14-36) U/L ALT 12 (4-34) U/L Alkaline Phosphatase 73 (38-126) U/L Total Protein 6.6 (6.3-8.2) g/dL Albumin 4.0 (3.5-5.0) g/dL Amylase 58 (30-110) U/L Lipase 91 (23-300) U/L Urine Color Urine Appearance (Clear) Urine pH (5.0-8.0) Ur Specific [place] (1.001-1.035) Urine Protein (Negative) Urine Glucose (UA) (Negative) Urine Ketones (Negative) Urine Blood (Negative) Urine Nitrite (Negative) Urine Bilirubin (Negative) Urine Urobilinogen (<2.0) mg/dL Ur Leukocyte Esterase (Negative) Urine RBC (0-5) /hpf Urine WBC (0-5) /hpf Ur Squamous Epith Cells (0-4) /hpf Urine Bacteria (None) /hpf Urine Mucus (None) /hpf Urine HCG, Qual (Not Detectd) 03/06/21 03/06/21 Range/Units 12:22 12:22 WBC (3.8-10.6) k/uL RBC (3.80-5.40) m/uL Hgb (11.4-16.0) gm/dL Hct (34.0-46.0) % MCV (80.0-100.0) fL MCH (25.0-35.0) pg MCHC (31.0-37.0) g/dL RDW (11.5-15.5) % Plt Count (150-450) k/uL MPV Neutrophils % % Lymphocytes % % Monocytes % % Eosinophils % % Basophils % % Neutrophils # (1.3-7.7) k/uL Lymphocytes # (1.0-4.8) k/uL Monocytes # (0-1.0) k/uL Eosinophils # (0-0.7) k/uL Basophils # (0-0.2) k/uL Sodium (137-145) mmol/L Potassium (3.5-5.1) mmol/L Chloride (98-107) mmol/L Carbon Dioxide (22-30) mmol/L Anion Gap mmol/L BUN (7-17) mg/dL Creatinine (0.52-1.04) mg/dL Est GFR (CKD-EPI)AfAm (>60 ml/min/1.73 sqM) Est GFR (CKD-EPI)NonAf (>60 ml/min/1.73 sqM) Glucose (74-99) mg/dL Plasma Lactic Acid Lex (0.7-2.0) mmol/L Calcium (8.4-10.2) mg/dL Total Bilirubin (0.2-1.3) mg/dL AST (14-36) U/L ALT (4-34) U/L Alkaline Phosphatase (38-126) U/L Total Protein (6.3-8.2) g/dL Albumin (3.5-5.0) g/dL Amylase (30-110) U/L Lipase (23-300) U/L Urine Color Light Yellow Urine Appearance Clear (Clear) Urine pH 6.5 (5.0-8.0) Ur Specific [place] 1.009 (1.001-1.035) Urine Protein Negative (Negative) Urine Glucose (UA) Negative (Negative) Urine Ketones Negative (Negative) Urine Blood Moderate H (Negative) Urine Nitrite Negative (Negative) Urine Bilirubin Negative (Negative) Urine Urobilinogen <2.0 (<2.0) mg/dL Ur Leukocyte Esterase Moderate H (Negative) Urine RBC 2 (0-5) /hpf Urine WBC 1 (0-5) /hpf Ur Squamous Epith Cells 2 (0-4) /hpf Urine Bacteria Occasional H (None) /hpf Urine Mucus Rare H (None) /hpf Urine HCG, Qual Not Detected (Not Detectd) Disposition Clinical Impression: Abdominal pain Disposition: HOME SELF-CARE Condition: Stable Instructions (If sedation given, give patient instructions): Abdominal Pain (ED) Additional Instructions: Please return to the Emergency Department if symptoms worsen or any other concerns. Prescriptions: Nitrofurantoin Monohyd/M-Cryst [Macrobid] 100 mg PO Q12HR #10 cap Metoclopramide [Reglan] 10 mg PO TID PRN #15 tab PRN Reason: Nausea Ketorolac [Toradol] 10 mg PO Q8HR #15 tab Is patient prescribed a controlled substance at d/c from ED?: No Referrals: Alyssa Echevarria MD [Primary Care Provider] - 1-2 days Time of Disposition: 13:36
--- NOTE | 2021-03-06 12:49 | CT ---
EXAMINATION TYPE: CT abdomen pelvis wo con DATE OF EXAM: 03/06/2021 COMPARISON: CT 09/01/2014 HISTORY: Abdominal pain CT DLP: 932.2 mGycm Automated exposure control for dose reduction was used. TECHNIQUE: Helical acquisition of images from the lung bases through the pelvis. FINDINGS: Lack of contrast could compromise sensitivity. Umbilical hernia contains fat. LUNG BASES: No significant abnormality is appreciated. AORTA: No significant abnormality is appreciataed. LIVER/GB: No significant abnormality is appreciated. PANCREAS: No significant abnormality is seen. SPLEEN: No significant abnormality is seen. ADRENALS: No significant abnormality is seen. KIDNEYS: Nonobstructive renal calculus present at the lower pole of the right kidney measures approxi mately 4 mm, no hydronephrosis or ureteral calcification present bilaterally. There is a retroaortic left renal vein. REPRODUCTIVE ORGANS: No significant abnormality is seen. URINARY BLADDER: No significant abnormality is seen. BOWEL: Scattered diverticula associated with the colon No evident appendicitis. FREE AIR: No Free Air is visible. ASCITES: None visible. PELVIC ADENOPATHY: None visualized. RETROPERITONEAL ADENOPATHY: No Retroperitoneal Adenopathy visible. OSSEOUS STRUCTURES: No significant abnormality is seen. IMPRESSION: NONCONTRAST EXAM. NONOBSTRUCTIVE RIGHT RENAL CALCULUS. DIVERTICULOSIS AND ADDITIONAL FINDINGS ABOVE.
[2021-03-06 13:11] LABS: Appearance,Urine Clear (Clear); Bacteria,Urine Occasional /hpf; Bilirubin,Urine Negative (Negative); Blood,Urine Moderate (Negative); Color,Urine Light Yellow; Glucose,Urine (UA) Negative (Negative); Ketones,Urine Negative (Negative); Leukocyte Esterase,Urine Moderate (Negative); Mucus,Urine Rare /hpf; Nitrite,Urine Negative (Negative); PH, Urine 6.5 (5.0-8.0); Protein,Urine Negative (Negative); RBC,Urine 2 /hpf (0-5); Specific Gravity,Urine 1.009 (1.001-1.035); Squamous Epithelial Cell,Urine 2 /hpf (0-4); Urobilinogen,Urine <2.0 mg/dL (<2.0); WBC,Urine 1 /hpf (0-5)
[2021-03-06 13:43] VITALS: BP 129/89; PULSE 74; RESP 16
== END 2021-03-06 13:42 | disposition home or self-care (01) ==
LOC: EC 10:41
DX: R10.9 Unspecified abdominal pain (principal); R11.0 Nausea; J45.909 Unspecified asthma, uncomplicated; Z79.51 Long term (current) use of inhaled steroids; Z88.5 Allergy status to narcotic agent; Z88.0 Allergy status to penicillin; Z98.84 Bariatric surgery status; Z87.442 Personal history of urinary calculi
CPT/HCPCS: 96374; 36415; 80053; 82150; 83605; 83690; 85025; 81001; 81025; 74176; 99284; 96375; 96361; J2405; J1885

== ENCOUNTER 2021-06-06 14:06 | Emergency (ER) | payer OTHER ==
--- NOTE | 2021-06-06 14:16 | ED ---
General Adult HPI - General Chief complaint: Abdominal Pain Stated complaint: Side Pain Time Seen by Provider: 06/06/21 14:15 Source: patient, RN notes reviewed Mode of arrival: ambulatory Limitations: no limitations - History of Present Illness Initial comments: 31-year-old female with a past medical history of asthma, back pain presents to the emergency room for a chief complaint of left-sided abdominal pain. Patient has had left-sided abdominal pain on and off for 3 months. It worsened the past 3 days again. Patient has had nausea but denies vomiting. Patient denies fevers or chills. States she was constipated but started to have bowel mov ements again. Patient has no other complaints at this time including shortness of breath, chest pain, vomiting, headache, or visual changes. - Related Data Home Medications Medication Instructions Recorded Confirmed medroxyPROGESTERone [Depo-Provera] 150 mg IM Q90D 03/06/21 06/06/21 Cetirizine HCl [Zyrtec] 10 mg PO DAILY 06/06/21 06/06/21 Previous Rx's Medication Instructions Recorded Dicyclomine [Bentyl] 20 mg PO TID PRN #20 tablet 06/06/21 Ondansetron [Zofran ODT] 4 mg PO Q8HR PRN #15 tab 06/06/21 Allergies Allergy/AdvReac Type Severity Reaction Status Date / Time fentanyl Allergy Anaphylaxis Verified 06/06/21 15:08 morphine Allergy Rash/Hives Verified 06/06/21 15:08 Penicillins Allergy Unknown Verified 06/06/21 15:08 Childhood Review of Systems ROS Statement: Those systems with pertinent positive or pertinent negative responses have been documented in the HPI. ROS Other: All systems not noted in ROS Statement are negative. Past Medical History Past Medical History: Asthma Additional Past Medical History / Comment(s): back pain, seasonal allergies History of Any Multi-Drug Resistant Organisms: None Reported Past Surgical History: Orthopedic Surgery Additional Past Surgical History / Comment(s): LEFT HIP SURG; RIGHT KNEE SURG, gastric resection Past Psychological History: No Psychological Hx Reported Smoking Status: Never smoker Past Alcohol Use History: None Reported Past Drug Use History: None Reported General Exam Limitations: no limitations General appearance: alert, in no apparent distress Head exam: Present: atraumatic Eye exam: Present: normal appearance, PERRL, EOMI. Absent: scleral icterus, conjunctival injection ENT exam: Present: normal exam, mucous membranes moist Neck exam: Present: normal inspection, full ROM. Absent: tenderness Respiratory exam: Present: normal lung sounds bilaterally. Absent: respiratory distress, wheezes Cardiovascular Exam: Present: regular rate, normal rhythm, normal heart sounds GI/Abdominal exam: Present: soft, tenderness (Left lower quadrant tenderness.), normal bowel sounds. Absent: distended Back exam: Absent: CVA tenderness (R), CVA tenderness (L) Course Vital Signs 06/06/21 06/06/21 14:07 16:10 Temperature 99.1 F Pulse Rate 103 H 60 Respiratory 19 18 Rate Blood Pressure 136/83 107/66 O2 Sat by Pulse 97 99 Oximetry Medical Decision Making - Medical Decision Making Vitals are stable. Patient is well-appearing. Physical exam does reveal some mild left lower quadrant tenderness. No guarding or rebound. CBC CMP unremarkable. Urinalysis is negative. CT was obtained which shows a mild u ncomplicated colitis from the proximal transverse colon through the mid sigmoid colon otherwise no acute finding. Patient was given pain medication. She did have some improvement however will be given Toradol and another nausea medicine. At this time patient be discharged home with Bentyl and Zofran. She will need to follow up with GI as she has had this pain on and off for several months and may need a colonoscopy. Referral given. She will return here for any worsening symptoms. - Lab Data Result diagrams: 06/06/21 15:14 06/06/21 15:14 Lab Results 06/06/21 06/06/21 06/06/21 Range/Units 15:14 15:14 16:56 WBC 7.4 (3.8-10.6) k/uL RBC 4.39 (3.80-5.40) m/uL Hgb 13.6 (11.4-16.0) gm/dL Hct 41.7 (34.0-46.0) % MCV 94.9 (80.0-100.0) fL MCH 30.9 (25.0-35.0) pg MCHC 32.6 (31.0-37.0) g/dL RDW 13.1 (11.5-15.5) % Plt Count 212 (150-450) k/uL MPV 9.9 Neutrophils % 71 % Lymphocytes % 20 % Monocytes % 6 % Eosinophils % 1 % Basophils % 0 % Neutrophils # 5.3 (1.3-7.7) k/uL Lymphocytes # 1.5 (1.0-4.8) k/uL Monocytes # 0.4 (0-1.0) k/uL Eosinophils # 0.1 (0-0.7) k/uL Basophils # 0.0 (0-0.2) k/uL Sodium 140 (137-145) mmol/L Potassium 4.2 (3.5-5.1) mmol/L Chloride 109 H (98-107) mmol/L Carbon Dioxide 22 (22-30) mmol/L Anion Gap 9 mmol/L BUN 11 (7-17) mg/dL Creatinine 0.66 (0.52-1.04) mg/dL Est GFR (CKD-EPI)AfAm >90 (>60 ml/min/1.73 sqM) Est GFR (CKD-EPI)NonAf >90 (>60 ml/min/1.73 sqM) Glucose 84 (74-99) mg/dL Calcium 9.3 (8.4-10.2) mg/dL Total Bilirubin 0.5 (0.2-1.3) mg/dL AST 20 (14-36) U/L ALT 19 (4-34) U/L Alkaline Phosphatase 65 (38-126) U/L Total Protein 6.7 (6.3-8.2) g/dL Albumin 4.0 (3.5-5.0) g/dL Amylase 46 (30-110) U/L Lipase 83 (23-300) U/L HCG, Qual Not Detected Urine Color Light Yellow Urine Appearance Clear (Clear) Urine pH 6.0 (5.0-8.0) Ur Specific [place] >1.050 H (1.001-1.035) Urine Protein Trace H (Negative) Urine Glucose (UA) Negative (Negative) Urine Ketones 2+ H (Negative) Urine Blood Small H (Negative) Urine Nitrite Negative (Negative) Urine Bilirubin Negative (Negative) Urine Urobilinogen <2.0 (<2.0) mg/dL Ur Leukocyte Esterase Small H (Negative) Urine RBC 7 H (0-5) /hpf Urine WBC 5 (0-5) /hpf Ur Squamous Epith Cells 7 H (0-4) /hpf Urine Mucus Rare H (None) /hpf Disposition Clinical Impression: Abdominal pain, Nausea Disposition: HOME SELF-CARE Condition: Good Instructions (If sedation given, give patient instructions): Abdominal Pain (ED) Additional Instructions: Take medications as directed. Follow-up with your doctor in one to 2 days. Return to the emergency room for any worsening symptoms. Prescriptions: Dicyclomine [Bentyl] 20 mg PO TID PRN #20 tablet PRN Reason: abdominal pain Ondansetron [Zofran ODT] 4 mg PO Q8HR PRN #15 tab PRN Reason: Nausea Is patient prescribed a controlled substance at d/c from ED?: No Referrals: Alyssa Echevarria MD [Primary Care Provider] - 1-2 days Time of Disposition: 17:52
[2021-06-06] MEDS ORDERED: SODIUM CHLORIDE 0.9% 1,000 ML IV STA (14:50)
[2021-06-06] MEDS ORDERED: ONDANSETRON 4 MG/2 ML VIAL IVP STA (14:50)
[2021-06-06] MEDS ORDERED: HYDROmorphone 0.5 MG/0.5 ML SYRINGE IVP STA (14:52)
[2021-06-06 15:24] LABS: Basophils % (A) 0 %; Eosinophils # (A) 0.1 k/uL (0-0.7); Eosinophils % (A) 1 %; HCT 41.7 % (34.0-46.0); HGB 13.6 gm/dL (11.4-16.0); Lymphocytes # (A) 1.5 k/uL (1.0-4.8); Lymphocytes % (A) 20 %; MCH 30.9 pg (25.0-35.0); MCHC 32.6 g/dL (31.0-37.0); MCV 94.9 fL (80.0-100.0); Mean Platelet Volume 9.9; Monocytes # (A) 0.4 k/uL (0-1.0); Monocytes % (A) 6 %; Neutrophils # (A) 5.3 k/uL (1.3-7.7); Neutrophils % (A) 71 %; Platelet Count 212 k/uL (150-450); RBC 4.39 m/uL (3.80-5.40); RDW 13.1 % (11.5-15.5); WBC 7.4 k/uL (3.8-10.6)
[2021-06-06 15:33] LABS: HCG,Qualitative Serum Not Detected
[2021-06-06 15:35] LABS: ALT 19 U/L (4-34); AST 20 U/L (14-36); African American GFR (CKD) >90 (>60 ml/min/1.73 sqM); Alkaline Phosphatase 65 U/L (38-126); Amylase 46 U/L (30-110); Anion Gap 9 mmol/L; Blood Urea Nitrogen 11 mg/dL (7-17); Calcium 9.3 mg/dL (8.4-10.2); Carbon Dioxide 22 mmol/L (22-30); Chloride 109 mmol/L (98-107); Glucose 84 mg/dL (74-99); Lipase 83 U/L (23-300); Non-African American GFR(CKD) >90 (>60 ml/min/1.73 sqM); Potassium 4.2 mmol/L (3.5-5.1); Sodium 140 mmol/L (137-145); Total Bilirubin 0.5 mg/dL (0.2-1.3); Total Protein 6.7 g/dL (6.3-8.2)
--- NOTE | 2021-06-06 16:04 | CT ---
EXAMINATION TYPE: CT abdomen pelvis w con DATE OF EXAM: 06/06/2021 HISTORY: left flank pain, known renal stones CT DLP: 1678mGycm Automated Exposure Control for Dose Reduction was Utilized. CONTRAST: CT scan of the abdomen and pelvis is performed without oral but with IV Contrast, patient injected wi th 100 mL of Isovue 300. COMPARISON: CT abdomen and pelvis March 06, 2021 FINDINGS: LUNG BASES: Dependent atelectasis in both bases. Tiny pericardial effusion anterior-inferior aspect r edemonstrated. LIVER/GB: No significant abnormality is appreciated. PANCREAS: No significant abnormality is seen. SPLEEN: No significant abnormality is seen. ADRENALS: No significant abnormality is seen. KIDNEYS: Stable 4 mm nonobstructing calculus right kidney mid to lower pole level coronal image 61. R etroaortic left renal vein which is normal variant redemonstrated. BOWEL: Suboptimal evaluation of bowel without enteric contrast. No suspicious small or large bowel di latation. A few scattered colonic diverticula are present. There is moderate wall thickening in the t ransverse colon just past the hepatic flexure extending through entire left colon into the sigmoid co keila in the pelvis. Parenchyma flat product of poor distention versus mild uncomplicated colitis. Raquel elate clinically. UTERUS/ADNEXA: No gross abnormality seen. LYMPH NODES: No greater than 1cm abdominal or pelvic lymph nodes are appreciated. OSSEOUS STRUCTURES: Slight scoliotic curvature on coronal images. OTHER: No significant additional abnormality is seen. IMPRESSION: Mild uncomplicated colitis from proximal transverse colon through mid sigmoid colon may b e present, correlate clinically. Otherwise no new or acute finding identified.
[2021-06-06] MEDS ORDERED: KETOROLAC 15 MG/ML 1 ML VIAL IVP STA (16:51)
[2021-06-06 17:14] LABS: Appearance,Urine Clear (Clear); Bilirubin,Urine Negative (Negative); Blood,Urine Small (Negative); Color,Urine Light Yellow; Glucose,Urine (UA) Negative (Negative); Ketones,Urine 2+ (Negative); Leukocyte Esterase,Urine Small (Negative); Mucus,Urine Rare /hpf; Nitrite,Urine Negative (Negative); Protein,Urine Trace (Negative); RBC,Urine 7 /hpf (0-5); Squamous Epithelial Cell,Urine 7 /hpf (0-4); Urobilinogen,Urine <2.0 mg/dL (<2.0); WBC,Urine 5 /hpf (0-5)
[2021-06-06 17:15] LABS: Specific Gravity,Urine >1.050 (1.001-1.035)
[2021-06-06] MEDS ORDERED: diphenhydrAMINE 50 MG/ML 1 ML VIAL IVP STA (17:43)
[2021-06-06] MEDS ORDERED: METOCLOPRAMIDE 5 MG/ML 2 ML VIAL IVP STA (17:43)
[2021-06-06] MEDS ORDERED: ACET/COD 300 MG/30 MG STARTER PACK 6 TAB BTL PO STA (17:53)
[2021-06-06 17:56] VITALS: BP 118/82; PULSE 68; RESP 17; TEMP 98.7
== END 2021-06-06 18:14 | disposition home or self-care (01) ==
LOC: EC 14:06
DX: R10.32 Left lower quadrant pain (principal); R11.0 Nausea; J45.909 Unspecified asthma, uncomplicated; Z88.0 Allergy status to penicillin; Z88.5 Allergy status to narcotic agent
CPT/HCPCS: 99284; 96374; 96375 ×4; 96361 ×3; 36415; 80053; 82150; 83690; 85025; 81001; 84703; 74177; J1200; J2765; J2405; J1885; J1170; Q9967

== ENCOUNTER 2021-06-10 13:53 | Inpatient (IN) | payer OTHER ==
[2021-06-10] MEDS ORDERED: KETOROLAC 15 MG/ML 1 ML VIAL IVP STA ×2 (16:39→19:33)
[2021-06-10] MEDS ORDERED: ONDANSETRON 4 MG/2 ML VIAL IVP STA ×2 (16:39→19:33)
[2021-06-10] MEDS ORDERED: SODIUM CHLORIDE 0.9% 1,000 ML IV ONE (16:40)
--- NOTE | 2021-06-10 16:43 | ED ---
Abdominal Pain HPI - General Chief Complaint: Abdominal Pain Stated Complaint: side pain Time Seen by Provider: 06/10/21 16:28 Source: patient Mode of arrival: ambulatory Limitations: no limitations - History of Present Illness Initial Comments: This is a 31-year-old female with a history of gastric resection presents for department for abdominal pain, nausea, and constipation. The patient has been having these symptoms on and off for the last few months. She was seen here in February with an unremarkable CAT scan and seen again here 4 days ago with a CAT scan concerning for colitis. She was sent home on Bentyl and Zofran and told to follow-up with [place] [facility]. The patient states that after this visit she did visit her primary doctor who put her on antibiotics however she's had persistent pain and nausea so she came back to emergency department today. She states that her symptoms of been persistent. Not worsening. She admits to nausea but no vomiting. She states that she's had issues going to the bathroom at times. No diarrhea. No bloody stools. No dysuria or hematuria. No vaginal bleeding or discharge. No other complaints. - Related Data Home Medications Medication Instructions Recorded Confirmed medroxyPROGESTERone [Depo-Provera] 150 mg IM Q90D 03/06/21 06/10/21 Cetirizine HCl [Zyrtec] 10 mg PO DAILY 06/06/21 06/10/21 Ibuprofen 800 mg PO TID-W/MEALS 06/10/21 06/10/21 Tamsulosin HCl [Flomax] 0.4 mg PO DAILY 06/10/21 06/10/21 levoFLOXacin 500 mg PO DAILY 06/10/21 06/10/21 metroNIDAZOLE [Flagyl] 500 mg PO Q8H 06/10/21 06/10/21 Previous Rx's Medication Instructions Recorded Dicyclomine [Bentyl] 20 mg PO TID PRN #20 tablet 06/06/21 Ondansetron [Zofran ODT] 4 mg PO Q8HR PRN #15 tab 06/06/21 Allergies Allergy/AdvReac Type Severity Reaction Status Date / Time fentanyl Allergy Anaphylaxis Verified 06/10/21 17:08 morphine Allergy Rash/Hives Verified 06/10/21 17:08 Penicillins Allergy Unknown Verified 06/10/21 17:08 Childhood Review of Systems ROS Statement: Those systems with pertinent positive or pertinent negative responses have been documented in the HPI. ROS Other: All systems not noted in ROS Statement are negative. Past Medical History Past Medical History: Asthma Additional Past Medical History / Comment(s): back pain, seasonal allergies History of Any Multi-Drug Resistant Organisms: None Reported Past Surgical History: Orthopedic Surgery Additional Past Surgical History / Comment(s): LEFT HIP SURG; RIGHT KNEE SURG, gastric resection Past Psychological History: No Psychological Hx Reported Smoking Status: Never smoker Past Alcohol Use History: None Reported Past Drug Use History: None Reported General Exam - General Exam Comments Initial Comments: Constitutional: Awake alert Appears comfortable Head: Normocephalic atraumatic Eyes: no conjunctival injection No scleral icterus EOMI Neck: No JVD Supple Heart: Regular rate rhythm normal S1-S2 no murmurs Lungs: Clear to auscultation bilaterally No wheezing No rales Abdomen: Soft nondistended tenderness in the left lower quadrant and suprapubic region without rebound or guarding Extremities: Non edematous DP pulses intact Radial pulses intact Neuro: A&Ox3 No focal neurologic deficits Psych: Appropriate mood and affect Limitations: no limitations Course Vital Signs 06/10/21 15:20 Temperature 98.5 F Pulse Rate 104 H Respiratory 18 Rate Blood Pressure 108/73 O2 Sat by Pulse 97 Oximetry Medical Decision Making - Medical Decision Making This is a 31-year-old female who presents emergency department for abdominal pain. Patient had a CAT scan 4 days ago showing colitis. This was attempted be treated outpatient. Dr. Echevarria started the patient on Levaquin and Flagyl 3 days ago without any improvement in her symptoms. The patient presented to the department today. She was little bit tachycardic on arrival however otherwise vital signs are stable. Blood work was repeated and showed a mild leukocytosis however otherwise unremarkable. Computed tomography scan was reviewed showing colitis of the transverse and descending colon. I rechecked to Dr. darden who recommended that the patient be admitted to the hospital for GI consultation and IV antibiotics. The patient was updated on this and agreed with plan of care. All questions were answered. - Lab Data Result diagrams: 06/10/21 16:43 06/10/21 16:43 Lab Results 06/10/21 06/10/21 06/10/21 Range/Units 16:43 16:43 16:43 WBC 11.2 H (3.8-10.6) k/uL RBC 4.87 (3.80-5.40) m/uL Hgb 15.0 (11.4-16.0) gm/dL Hct 47.5 H (34.0-46.0) % MCV 97.6 (80.0-100.0) fL MCH 30.7 (25.0-35.0) pg MCHC 31.5 (31.0-37.0) g/dL RDW 13.0 (11.5-15.5) % Plt Count 208 (150-450) k/uL MPV 11.0 Neutrophils % 78 % Lymphocytes % 16 % Monocytes % 4 % Eosinophils % 1 % Basophils % 0 % Neutrophils # 8.8 H (1.3-7.7) k/uL Lymphocytes # 1.8 (1.0-4.8) k/uL Monocytes # 0.4 (0-1.0) k/uL Eosinophils # 0.1 (0-0.7) k/uL Basophils # 0.0 (0-0.2) k/uL PT 11.5 (9.0-12.0) sec INR 1.1 (<1.2) APTT 24.5 (22.0-30.0) sec Sodium (137-145) mmol/L Potassium (3.5-5.1) mmol/L Chloride (98-107) mmol/L Carbon Dioxide (22-30) mmol/L Anion Gap mmol/L BUN (7-17) mg/dL Creatinine (0.52-1.04) mg/dL Est GFR (CKD-EPI)AfAm (>60 ml/min/1.73 sqM) Est GFR (CKD-EPI)NonAf (>60 ml/min/1.73 sqM) Glucose (74-99) mg/dL Calcium (8.4-10.2) mg/dL Total Bilirubin (0.2-1.3) mg/dL AST (14-36) U/L ALT (4-34) U/L Alkaline Phosphatase (38-126) U/L Total Protein (6.3-8.2) g/dL Albumin (3.5-5.0) g/dL Urine Color Yellow Urine Appearance Cloudy H (Clear) Urine pH 5.5 (5.0-8.0) Ur Specific [place] 1.022 (1.001-1.035) Urine Protein 1+ H (Negative) Urine Glucose (UA) Negative (Negative) Urine Ketones 4+ H (Negative) Urine Blood Large H (Negative) Urine Nitrite Negative (Negative) Urine Bilirubin Negative (Negative) Urine Urobilinogen <2.0 (<2.0) mg/dL Ur Leukocyte Esterase Large H (Negative) Urine RBC 9 H (0-5) /hpf Urine WBC 15 H (0-5) /hpf Ur Squamous Epith Cells 10 H (0-4) /hpf Urine Bacteria Many H (None) /hpf Urine Mucus Occasional H (None) /hpf Urine HCG, Qual (Not Detectd) 06/10/21 06/10/21 Range/Units 16:43 16:43 WBC (3.8-10.6) k/uL RBC (3.80-5.40) m/uL Hgb (11.4-16.0) gm/dL Hct (34.0-46.0) % MCV (80.0-100.0) fL MCH (25.0-35.0) pg MCHC (31.0-37.0) g/dL RDW (11.5-15.5) % Plt Count (150-450) k/uL MPV Neutrophils % % Lymphocytes % % Monocytes % % Eosinophils % % Basophils % % Neutrophils # (1.3-7.7) k/uL Lymphocytes # (1.0-4.8) k/uL Monocytes # (0-1.0) k/uL Eosinophils # (0-0.7) k/uL Basophils # (0-0.2) k/uL PT (9.0-12.0) sec INR (<1.2) APTT (22.0-30.0) sec Sodium 139 (137-145) mmol/L Potassium 4.1 (3.5-5.1) mmol/L Chloride 108 H (98-107) mmol/L Carbon Dioxide 17 L (22-30) mmol/L Anion Gap 14 mmol/L BUN 10 (7-17) mg/dL Creatinine 0.67 (0.52-1.04) mg/dL Est GFR (CKD-EPI)AfAm >90 (>60 ml/min/1.73 sqM) Est GFR (CKD-EPI)NonAf >90 (>60 ml/min/1.73 sqM) Glucose 72 L (74-99) mg/dL Calcium 9.4 (8.4-10.2) mg/dL Total Bilirubin 0.6 (0.2-1.3) mg/dL AST 22 (14-36) U/L ALT 18 (4-34) U/L Alkaline Phosphatase 74 (38-126) U/L Total Protein 7.6 (6.3-8.2) g/dL Albumin 4.8 (3.5-5.0) g/dL Urine Color Urine Appearance (Clear) Urine pH (5.0-8.0) Ur Specific [place] (1.001-1.035) Urine Protein (Negative) Urine Glucose (UA) (Negative) Urine Ketones (Negative) Urine Blood (Negative) Urine Nitrite (Negative) Urine Bilirubin (Negative) Urine Urobilinogen (<2.0) mg/dL Ur Leukocyte Esterase (Negative) Urine RBC (0-5) /hpf Urine WBC (0-5) /hpf Ur Squamous Epith Cells (0-4) /hpf Urine Bacteria (None) /hpf Urine Mucus (None) /hpf Urine HCG, Qual Not Detected (Not Detectd) Disposition Clinical Impression: Colitis Disposition: ADMITTED IP TO THIS HOSP Condition: Stable Referrals: Alyssa Echevarria MD [Primary Care Provider] - 1-2 days
[2021-06-10 17:02] LABS: Basophils % (A) 0 %; Eosinophils # (A) 0.1 k/uL (0-0.7); Eosinophils % (A) 1 %; HCT 47.5 % (34.0-46.0); Lymphocytes # (A) 1.8 k/uL (1.0-4.8); Lymphocytes % (A) 16 %; MCH 30.7 pg (25.0-35.0); MCHC 31.5 g/dL (31.0-37.0); MCV 97.6 fL (80.0-100.0); Monocytes # (A) 0.4 k/uL (0-1.0); Monocytes % (A) 4 %; Neutrophils # (A) 8.8 k/uL (1.3-7.7); Neutrophils % (A) 78 %; Platelet Count 208 k/uL (150-450); RBC 4.87 m/uL (3.80-5.40); WBC 11.2 k/uL (3.8-10.6)
[2021-06-10 17:07] LABS: Appearance,Urine Cloudy (Clear); Bacteria,Urine Many /hpf; Bilirubin,Urine Negative (Negative); Blood,Urine Large (Negative); Color,Urine Yellow; Glucose,Urine (UA) Negative (Negative); Ketones,Urine 4+ (Negative); Leukocyte Esterase,Urine Large (Negative); Mucus,Urine Occasional /hpf; Nitrite,Urine Negative (Negative); PH, Urine 5.5 (5.0-8.0); Protein,Urine 1+ (Negative); RBC,Urine 9 /hpf (0-5); Specific Gravity,Urine 1.022 (1.001-1.035); Squamous Epithelial Cell,Urine 10 /hpf (0-4); Urobilinogen,Urine <2.0 mg/dL (<2.0); WBC,Urine 15 /hpf (0-5)
[2021-06-10 17:11] LABS: INR 1.1 (<1.2); Partial Thromboplastin Time 24.5 sec (22.0-30.0); Prothrombin Time 11.5 sec (9.0-12.0)
[2021-06-10 17:18] LABS: ALT 18 U/L (4-34); AST 22 U/L (14-36); African American GFR (CKD) >90 (>60 ml/min/1.73 sqM); Albumin 4.8 g/dL (3.5-5.0); Alkaline Phosphatase 74 U/L (38-126); Anion Gap 14 mmol/L; Blood Urea Nitrogen 10 mg/dL (7-17); Calcium 9.4 mg/dL (8.4-10.2); Carbon Dioxide 17 mmol/L (22-30); Chloride 108 mmol/L (98-107); Glucose 72 mg/dL (74-99); Non-African American GFR(CKD) >90 (>60 ml/min/1.73 sqM); Potassium 4.1 mmol/L (3.5-5.1); Sodium 139 mmol/L (137-145); Total Bilirubin 0.6 mg/dL (0.2-1.3); Total Protein 7.6 g/dL (6.3-8.2)
[2021-06-10] MEDS ORDERED: ACETAMINOPHEN TAB 325 MG TAB PO PRN (19:08)
[2021-06-10] MEDS ORDERED: NALOXONE 0.4 MG/ML 1 ML VIAL IV PRN (19:08)
[2021-06-10] MEDS ORDERED: DICYCLOMINE 10 MG/ML 2 ML AMP IM STA (19:33)
[2021-06-10] MEDS: SODIUM CHLORIDE 0.9% 1,000 ML IV SCH (19:47)
[2021-06-10] MEDS: LEVOFLOXACIN 500MG-D5W PMX 500 MG in DEXTROSE/WATER 1 100ML.BAG IVPB SCH (19:53)
[2021-06-10] MEDS: metroNIDAZOLE-NS PMX 500 MG in SALINE 1 100ML.BAG IVPB SCH (20:58)
[2021-06-11] MEDS: KETOROLAC 15 MG/ML 1 ML VIAL IVP SCH ×5 (01:00→23:21)
[2021-06-11] MEDS: SODIUM CHLORIDE 0.9% 1,000 ML IV SCH ×3 (01:01→18:09)
[2021-06-11] MEDS: metroNIDAZOLE-NS PMX 500 MG in SALINE 1 100ML.BAG IVPB SCH ×3 (03:05→18:00)
[2021-06-11] MEDS: ONDANSETRON 4 MG/2 ML VIAL IVP PRN ×2 (05:39→14:10)
[2021-06-11 06:47] LABS: Basophils % (A) 0 %; Eosinophils # (A) 0.1 k/uL (0-0.7); Eosinophils % (A) 1 %; HCT 38.9 % (34.0-46.0); HGB 12.2 gm/dL (11.4-16.0); Lymphocytes # (A) 1.3 k/uL (1.0-4.8); Lymphocytes % (A) 17 %; MCH 30.6 pg (25.0-35.0); MCHC 31.3 g/dL (31.0-37.0); MCV 97.6 fL (80.0-100.0); Mean Platelet Volume 12.1; Monocytes # (A) 0.5 k/uL (0-1.0); Monocytes % (A) 6 %; Neutrophils # (A) 5.8 k/uL (1.3-7.7); Neutrophils % (A) 75 %; Platelet Count 171 k/uL (150-450); RBC 3.99 m/uL (3.80-5.40); RDW 13.2 % (11.5-15.5); WBC 7.7 k/uL (3.8-10.6)
[2021-06-11 07:06] LABS: ALT 11 U/L (4-34); AST 18 U/L (14-36); African American GFR (CKD) >90 (>60 ml/min/1.73 sqM); Albumin 3.3 g/dL (3.5-5.0); Alkaline Phosphatase 54 U/L (38-126); Anion Gap 10 mmol/L; Blood Urea Nitrogen 11 mg/dL (7-17); Calcium 8.2 mg/dL (8.4-10.2); Carbon Dioxide 15 mmol/L (22-30); Chloride 114 mmol/L (98-107); Glucose 76 mg/dL (74-99); Non-African American GFR(CKD) >90 (>60 ml/min/1.73 sqM); Sodium 139 mmol/L (137-145); Total Bilirubin 0.4 mg/dL (0.2-1.3); Total Protein 5.7 g/dL (6.3-8.2)
[2021-06-11] MEDS: METOCLOPRAMIDE 5 MG/ML 2 ML VIAL IVP PRN ×2 (08:50→23:19)
--- NOTE | 2021-06-11 17:33 | P.CONS ---
History of Present Illness - Reason for Consult Consult date: 06/11/21 colitis, abdominal pain Requesting physician: Alyssa Echevarria - Chief Complaint Abdominal pain - History of Present Illness This a 31-year-old female who presented to the emergency department with complaints of stomach pain in the left lower quadrant with loose stools 1-2 da ys. Patient states she presented to the emergency department as she thought she was having pain related to kidney stones. She states she was seen in emergency department one month ago with a history of kidney stones however states she didn't pass it. She denies any blood in her stool. Patient states she is having nausea but no vomiting. She was seen previously in the emergency department on 06/06/[address] of the abdomen and pelvis 2. The first CT of the abdomen showed diverticulosis with a right renal calculi. She was sent home from the emergency department but still having pain returned and they repeated a CT of the abdomen and pelvis. Second CT of abdomen and pelvis s howed mild uncomplicated colitis from proximal transverse colon through mid sigmoid colon may be present. Correlate clinically. Otherwise no new or acute findings identified. Patient denies any previous history of colitis or similar symptoms. She was started on Flagyl and Levaquin. States abdominal pain is improving. She denies any previous history of EGD or colonoscopy. She has been afebrile, she had mild leukocytosis with a WBC of 11.2 on admission. Today's repeat labs WBC 7.7 hemoglobin 12.2 hematocrit 38.9 platelet count 171,000 total bilirubin 0.4 AST 18 ALT 11 alk phos 54 Review of Systems REVIEW OF SYSTEMS: CARDIOPULMONARY: No chest pain or shortness of breath. Gastrointestinal: Left lower quadrant abdominal pain.. Positive nausea but no vomiting. No hematemesis, coffee-ground emesis. No rectal bleeding, or melena. Loose stools 1-2. GENITOURINARY: No dysuria or hematuria. MUSCULOSKELETAL: Reports normal range of motion., Joint pain. SKIN: No rashes. No jaundice. ENDOCRINE: No chills, fevers. No excessive weight gain or loss. No polydipsia or polyuria. PSYCHIATRIC: Unremarkable. NEUROLOGY: No change in mental status. Denies dizziness, headache. ENT: Vision unremarkable. CONSTITUTIONAL: No recent weight loss. No fever, chills, night sweats. Past Medical History Past Medical History: Asthma Additional Past Medical History / Comment(s): back pain, seasonal allergies History of Any Multi-Drug Resistant Organisms: None Reported Past Surgical History: Orthopedic Surgery Additional Past Surgical History / Comment(s): LEFT HIP SURG; RIGHT KNEE SURG Past Anesthesia/Blood Transfusion Reactions: No Reported Reaction Past Psychological History: No Psychological Hx Reported Smoking Status: Never smoker Past Alcohol Use History: None Reported Past Drug Use History: None Reported - Past Family History Mother Family Medical History: No Reported History Father Family Medical History: No Reported History Medications and Allergies Home Medications Medication Instructions Recorded Confirmed Type medroxyPROGESTERone [Depo-Provera] 150 mg IM Q90D 03/06/21 06/10/21 History Cetirizine HCl [Zyrtec] 10 mg PO DAILY 06/06/21 06/10/21 History Dicyclomine [Bentyl] 20 mg PO TID PRN #20 tablet 06/06/21 06/10/21 Rx Ondansetron [Zofran ODT] 4 mg PO Q8HR PRN #15 tab 06/06/21 06/10/21 Rx Ibuprofen 800 mg PO TID-W/MEALS 06/10/21 06/10/21 History Tamsulosin HCl [Flomax] 0.4 mg PO DAILY 06/10/21 06/10/21 History levoFLOXacin 500 mg PO DAILY 06/10/21 06/10/21 History metroNIDAZOLE [Flagyl] 500 mg PO Q8H 06/10/21 06/10/21 History Allergies Allergy/AdvReac Type Severity Reaction Status Date / Time fentanyl Allergy Anaphylaxis Verified 06/10/21 17:08 morphine Allergy Rash/Hives Verified 06/10/21 17:08 Penicillins Allergy Unknown Verified 06/10/21 17:08 Childhood Physical Exam Vitals: Vital Signs Temp Pulse Pulse Resp BP BP Pulse Ox 06/11/21 07:40 98.8 F 72 20 105/71 98 06/11/21 01:56 98.4 F 72 16 102/61 98 06/10/21 21:41 98.6 F 61 18 123/68 100 06/10/21 21:06 98.2 F 70 20 134/79 98 06/10/21 15:20 98.5 F 104 H 18 108/73 97 Intake and Output 06/10/21 06/11/21 06/11/21 22:59 06:59 14:59 Intake Total 100 1040 Output Total 250 Balance -150 1040 Intake: Intake, IV Titration 100 1040 Amount Sodium Chloride 0.9% 1, 1040 000 ml @ 130 mls/hr IV . Q7H42M [facility] Rx#:[id number] metroNIDAZOLE-NS PMX 500 100 mg In Saline 1 100ml.bag @ 100 mls/hr IVPB Q8H [facility] Rx#:[id number] Output: Urine 250 Other: Voiding Method Toilet # Voids 2 Weight 99.7 kg General appearance: The patient is alert, oriented, appears in no acute distress. HET: Head is normocephalic and atraumatic. Conjunctiva pink. Sclera anicteric. Neck: Supple without lymphadenopathy. Trachea midline. Heart: S1 S2. Regular rate and rhythm. Lungs: Clear to auscultation. Abdomen: Soft, right and left lower quadrant tenderness,, nondistended with bowel sounds. No guarding or rigidity. Skin: No rashes. No jaundice. Extremities: Normal skin color and turgor. No pedal edema. Neurological: No focal deficits. Alert and oriented 3.. Results CBC & Chem 7: 06/11/21 05:34 06/11/21 05:34 Labs: Abnormal Lab Results - Last 24 Hours (Table) 06/10/21 06/10/21 06/10/21 Range/Units 16:43 16:43 16:43 WBC 11.2 H (3.8-10.6) k/uL Hct 47.5 H (34.0-46.0) % Neutrophils # 8.8 H (1.3-7.7) k/uL Chloride 108 H (98-107) mmol/L Carbon Dioxide 17 L (22-30) mmol/L Glucose 72 L (74-99) mg/dL Calcium (8.4-10.2) mg/dL Total Protein (6.3-8.2) g/dL Albumin (3.5-5.0) g/dL Urine Appearance Cloudy H (Clear) Urine Protein 1+ H (Negative) Urine Ketones 4+ H (Negative) Urine Blood Large H (Negative) Ur Leukocyte Esterase Large H (Negative) Urine RBC 9 H (0-5) /hpf Urine WBC 15 H (0-5) /hpf Ur Squamous Epith Cells 10 H (0-4) /hpf Urine Bacteria Many H (None) /hpf Urine Mucus Occasional H (None) /hpf 06/11/21 Range/Units 05:34 WBC (3.8-10.6) k/uL Hct (34.0-46.0) % Neutrophils # (1.3-7.7) k/uL Chloride 114 H (98-107) mmol/L Carbon Dioxide 15 L (22-30) mmol/L Glucose (74-99) mg/dL Calcium 8.2 L (8.4-10.2) mg/dL Total Protein 5.7 L (6.3-8.2) g/dL Albumin 3.3 L (3.5-5.0) g/dL Urine Appearance (Clear) Urine Protein (Negative) Urine Ketones (Negative) Urine Blood (Negative) Ur Leukocyte Esterase (Negative) Urine RBC (0-5) /hpf Urine WBC (0-5) /hpf Ur Squamous Epith Cells (0-4) /hpf Urine Bacteria (None) /hpf Urine Mucus (None) /hpf Microbiology - Last 24 Hours (Table) 06/10/21 16:43 Urine Culture - Preliminary Urine,Voided Comments: See HPI for details Assessment and Plan (1) Abdominal pain Narrative/Plan: 31-year-old female who presented to the emergency department on 06/06/2021 with complaints of abdominal pain who underwent CT of the abdomen and pelvis showing mild uncomplicated colitis was then sent home. She returned yesterday with complaints of abdominal pain persisting associated with nausea but no vomiting. States she's been having 1-2 episodes of diarrhea a day. Denies any blood in her stool. Patient denies any fevers or chills. She did have a recent diagnosis of a kidney stone approximately 1 month ago which she states she has not passed. She has no history of colitis. She was started on Flagyl and Levaquin with improvement of her symptoms. No previous history of EGD or colonoscopy. She had mild leukocytosis on presentation which has improved, otherwise labs are unremarkable. Likely we are dealing with an infectious colitis. Recommend continuing Flagyl and Levaquin. May advance diet as tolerated. No plans on endoscopic evaluation. Current Visit: No Status: Acute Code(s): R10.9 - UNSPECIFIED ABDOMINAL PAIN SNOMED Code(s): 14443024 Plan: 1. Continue symptomatic and supportive care 2. Increase diet as tolerated 3. Continue antiemetics as needed 4. Continue Flagyl and Levaquin 5. Protonix for GI prophylaxis 6. No plans on endoscopic evaluation 7. C. diff and stool culture ordered Thank you for this consultation, we will continue to follow. Dr. Sandeep Millan I agree with the dictator's note, documented as a scribe by Pavithra Paz.
[2021-06-11] MEDS: LEVOFLOXACIN 500MG-D5W PMX 500 MG in DEXTROSE/WATER 1 100ML.BAG IVPB SCH (18:01)
--- NOTE | 2021-06-11 19:26 | P.HPIM ---
History of Present Illness H&P Date: 06/10/21 Chief Complaint: Abdominal pain Judit Tirado, is a 31 years old female who presented to [facility] emergency room with a chief complaint of abdominal pain. Patient was originally seen in the emergency room 4 days prior on 06/06/2021 with similar symptoms of abdominal pain and nausea, at that time she had a computed tomography scan of the abdomen and pelvis with contrast that revealed evidence of and complicated colitis extending from the proximal transverse colon on through the mid sigmoid colon, at that time patient was discharged home, she was seen in our office the next day and I started her on a course of oral Levaquin and oral Flagyl, however her condition continued to worsen and she decided to return again to emergency room at that point she was admitted to medical floor she was started on IV Levaquin and IV Flagyl, gastroenterology consultation was requested. She was evaluated in the emergency room vital examination on presentation revealed a temperature of 98.5 pulse 104 respiration 18 blood pressure 108/73 pulse ox 97% on room air Laboratory data revealed a white blood count of 11.2 hemoglobin 15.0 platelet count 208 sodium 139 potassium 4.1 chloride 108 CO2 17 BUN 10 creatinine 0.67 urine analysis revealed evidence of urinary tract infection test was negative Harmon virus PCR was negative Past medical history is significant for asthma and occasional back pain, her past surgical history is significant for left hip surgery right knee surgery Past Medical History Past Medical History: Asthma Additional Past Medical History / Comment(s): back pain, seasonal allergies History of Any Multi-Drug Resistant Organisms: None Reported Past Surgical History: Orthopedic Surgery Additional Past Surgical History / Comment(s): LEFT HIP SURG; RIGHT KNEE SURG Past Anesthesia/Blood Transfusion Reactions: No Reported Reaction Past Psychological History: No Psychological Hx Reported Smoking Status: Never smoker Past Alcohol Use History: None Reported Past Drug Use History: None Reported - Past Family History Mother Family Medical History: No Reported History Father Family Medical History: No Reported History Medications and Allergies Home Medications Medication Instructions Recorded Confirmed Type medroxyPROGESTERone [Depo-Provera] 150 mg IM Q90D 03/06/21 06/10/21 History Cetirizine HCl [Zyrtec] 10 mg PO DAILY 06/06/21 06/10/21 History Dicyclomine [Bentyl] 20 mg PO TID PRN #20 tablet 06/06/21 06/10/21 Rx Ondansetron [Zofran ODT] 4 mg PO Q8HR PRN #15 tab 06/06/21 06/10/21 Rx Ibuprofen 800 mg PO TID-W/MEALS 06/10/21 06/10/21 History Tamsulosin HCl [Flomax] 0.4 mg PO DAILY 06/10/21 06/10/21 History levoFLOXacin 500 mg PO DAILY 06/10/21 06/10/21 History metroNIDAZOLE [Flagyl] 500 mg PO Q8H 06/10/21 06/10/21 History Allergies Allergy/AdvReac Type Severity Reaction Status Date / Time fentanyl Allergy Anaphylaxis Verified 06/10/21 17:08 morphine Allergy Rash/Hives Verified 06/10/21 17:08 Penicillins Allergy Unknown Verified 06/10/21 17:08 Childhood Physical Exam Vitals: Vital Signs Temp Pulse Pulse Resp BP BP Pulse Ox 06/10/21 21:41 98.6 F 61 18 123/68 100 06/10/21 21:06 98.2 F 70 20 134/79 98 06/10/21 15:20 98.5 F 104 H 18 108/73 97 Intake and Output 06/10/21 06/10/21 06/10/21 06:59 14:59 22:59 Intake Total 100 Output Total 250 Balance -150 Intake: Intake, IV Titration 100 Amount metroNIDAZOLE-NS PMX 500 100 mg In Saline 1 100ml.bag @ 100 mls/hr IVPB Q8H [facility] Rx#:[id number] Output: Urine 250 Other: Voiding Method Toilet Weight 99.7 kg In general patient is alert and oriented x 3 in no distress HEENT head normocephalic and atraumatic Neck is supple no JVD no goiter no lymphadenopathy no carotid bruit Chest examination is clear to auscultation no crackles no wheezing Cardiac exam reveals regular heart sounds S1 and S2 no gallops no murmurs Abdomen is soft nontender no organomegaly with normal bowel sounds Extremity exam reveals no edema no cyanosis or clubbing Neurological examination reveals no gross focal deficits Results CBC & Chem 7: 06/11/21 05:34 06/11/21 05:34 Labs: Abnormal Lab Results - Last 24 Hours (Table) 06/10/21 06/10/21 06/10/21 Range/Units 16:43 16:43 16:43 WBC 11.2 H (3.8-10.6) k/uL Hct 47.5 H (34.0-46.0) % Neutrophils # 8.8 H (1.3-7.7) k/uL Chloride 108 H (98-107) mmol/L Carbon Dioxide 17 L (22-30) mmol/L Glucose 72 L (74-99) mg/dL Urine Appearance Cloudy H (Clear) Urine Protein 1+ H (Negative) Urine Ketones 4+ H (Negative) Urine Blood Large H (Negative) Ur Leukocyte Esterase Large H (Negative) Urine RBC 9 H (0-5) /hpf Urine WBC 15 H (0-5) /hpf Ur Squamous Epith Cells 10 H (0-4) /hpf Urine Bacteria Many H (None) /hpf Urine Mucus Occasional H (None) /hpf Thrombosis Risk Factor Assmnt - Choose All That Apply Any of the Below Risk Factors Present?: Yes Each Factor Represents 1 point: Obesity (BMI >25) Thrombosis Risk Factor Assessment Total Risk Factor Score: 1 Thrombosis Risk Factor Assessment Level: Low Risk Assessment and Plan Plan: Abdominal pain and nausea Evidence of colitis on CT scan done on 06/06/2021 Underlying history of asthma Underlying history of joint pain with multiple joint surgeries in the past At this time patient is admitted to medical floor She is being treated symptomatically for abdominal pain and nausea She was started on IV antibiotics Levaquin and Flagyl for acute colitis Will obtain stool sample for culture and Clostridium difficile toxin Gastroenterology consultation was requested
[2021-06-11] MEDS: LORATADINE 10 MG TAB PO SCH (20:14)
[2021-06-11] MEDS ORDERED: DICYCLOMINE 20 MG TAB PO PRN (22:00)
[2021-06-12] MEDS: metroNIDAZOLE-NS PMX 500 MG in SALINE 1 100ML.BAG IVPB SCH ×3 (02:05→18:11)
[2021-06-12] MEDS: SODIUM CHLORIDE 0.9% 1,000 ML IV SCH ×3 (02:06→20:20)
[2021-06-12] MEDS: KETOROLAC 15 MG/ML 1 ML VIAL IVP SCH ×3 (05:34→18:11)
[2021-06-12 06:31] LABS: Basophils % (A) 0 %; Eosinophils # (A) 0.1 k/uL (0-0.7); Eosinophils % (A) 2 %; HCT 37.6 % (34.0-46.0); HGB 12.4 gm/dL (11.4-16.0); Lymphocytes # (A) 1.6 k/uL (1.0-4.8); Lymphocytes % (A) 28 %; MCH 31.3 pg (25.0-35.0); MCHC 32.8 g/dL (31.0-37.0); MCV 95.4 fL (80.0-100.0); Mean Platelet Volume 11.9; Monocytes # (A) 0.3 k/uL (0-1.0); Monocytes % (A) 5 %; Neutrophils # (A) 3.6 k/uL (1.3-7.7); Neutrophils % (A) 62 %; Platelet Count 184 k/uL (150-450); RBC 3.94 m/uL (3.80-5.40); RDW 13.6 % (11.5-15.5); WBC 5.7 k/uL (3.8-10.6)
[2021-06-12 06:46] LABS: ALT 16 U/L (4-34); AST 20 U/L (14-36); African American GFR (CKD) >90 (>60 ml/min/1.73 sqM); Albumin 3.1 g/dL (3.5-5.0); Alkaline Phosphatase 50 U/L (38-126); Anion Gap 6 mmol/L; Blood Urea Nitrogen 4 mg/dL (7-17); Calcium 8.5 mg/dL (8.4-10.2); Carbon Dioxide 17 mmol/L (22-30); Chloride 115 mmol/L (98-107); Glucose 84 mg/dL (74-99); Non-African American GFR(CKD) >90 (>60 ml/min/1.73 sqM); Sodium 138 mmol/L (137-145); Total Bilirubin 0.3 mg/dL (0.2-1.3); Total Protein 5.5 g/dL (6.3-8.2)
[2021-06-12] MEDS: ONDANSETRON 4 MG/2 ML VIAL IVP PRN ×2 (08:24→22:30)
[2021-06-12] MEDS: LORATADINE 10 MG TAB PO SCH (08:28)
--- NOTE | 2021-06-12 12:06 | P.PN ---
Subjective Progress Note Date: 06/12/21 Principal diagnosis: Abdominal pain, colitis Patient is a 31-year-old female who presented to the emergency department with complaints of abdominal pain associated with nausea and diarrhea. She had a CT of the abdomen that showed mild nonspecific colitis. She's been treated with antibiotics on Flagyl and Levaquin. She's been afebrile. States she had 3 episodes of loose stool yesterday. Stool culture is pending, C. difficile toxin is negative. Patient states she still having right lower abdominal pain. Not much appetite, still having some nausea. Denies any rectal bleeding or blood in her stool. Labs are unremarkable. Objective - Vital Signs Vital signs: Vital Signs Temp 97.9 F 06/12/21 08:43 Pulse 67 06/12/21 08:43 Resp 20 06/12/21 08:43 BP 112/75 06/12/21 08:43 Pulse Ox 98 06/12/21 08:43 Intake & Output 06/11/21 06/12/21 06/12/21 18:59 06:59 18:59 Other: Voiding Method Toilet # Voids 2 1 1 # Bowel Movements 1 1 - Exam General appearance: The patient is alert, oriented, appears in no acute distress. HET: Head is normocephalic and atraumatic. Conjunctiva pink. Sclera anicteric. Neck: Supple without lymphadenopathy. Abdomen: Soft, right and left lower quadrant tenderness, nondistended with bowel sounds. No guarding or rigidity. Extremities: Normal skin color and turgor. No pedal edema Skin: No rashes, no jaundice Neurological: No focal deficits. Alert and oriented 3. - Labs CBC & Chem 7: 06/12/21 05:49 06/12/21 05:49 Labs: Abnormal Lab Results - Last 24 Hours (Table) 06/12/21 Range/Units 05:49 Chloride 115 H (98-107) mmol/L Carbon Dioxide 17 L (22-30) mmol/L BUN 4 L (7-17) mg/dL Total Protein 5.5 L (6.3-8.2) g/dL Albumin 3.1 L (3.5-5.0) g/dL Microbiology - Last 24 Hours (Table) 06/11/21 16:55 Stool Culture - Preliminary Stool 06/10/21 19:22 Blood Culture - Preliminary Blood No Growth after 24 hours 06/10/21 20:09 Blood Culture - Preliminary Blood No Growth after 24 hours Assessment and Plan (1) Abdominal pain Narrative/Plan: 31-year-old female who presented to the emergency department on 06/06/2021 with complaints of abdominal pain who underwent CT of the abdomen and pelvis showing mild uncomplicated colitis was then sent home. She returned yesterday with complaints of abdominal pain persisting associated with nausea but no vomiting. States she's been having 1-2 episodes of diarrhea a day. Denies any blood in her stool. Patient denies any fevers or chills. She did have a recent diagnosis of a kidney stone approximately 1 month ago which she states she has not passed. She has no history of colitis. She was started on Flagyl and Levaquin with improvement of her symptoms. No previous history of EGD or colonoscopy. She had mild leukocytosis on presentation which has improved, otherwise labs are unremarkable. Likely we are dealing with an infectious colitis. Recommend continuing Flagyl and Levaquin. May advance diet as tolerated. No plans on endoscopic evaluation. Current Visit: No Status: Acute Code(s): R10.9 - UNSPECIFIED ABDOMINAL PAIN SNOMED Code(s): 14526234 Plan: 1. Continue symptomatic and supportive care 2. Increase diet as tolerated 3. Continue antiemetics as needed 4. Continue Flagyl and Levaquin 5. Protonix for GI prophylaxis 6. No plans on endoscopic evaluation 7. C. diff and stool culture ordered Thank you for this consultation, we will continue to follow. Dr. Sandeep Millan I agree with the dictator's note, documented as a scribe by Pavithra Paz.
--- NOTE | 2021-06-12 12:54 | P.PN ---
Subjective Progress Note Date: 06/12/21 Judit Tirado, is a 31 years old female who presented to [facility] emergency room with a chief complaint of abdominal pain. Patient was originally seen in the emergency room 4 days prior on 06/06/2021 with similar symptoms of abdominal pain and nausea, at that time she had a computed tomography scan of the abdomen and pelvis with contrast that revealed evidence of and complicated colitis extending from the proximal transverse colon on through the mid sigmoid colon, at that time patient was discharged home, she was seen in our office the next day and I started her on a course of oral Levaquin and oral Flagyl, however her condition continued to worsen and she decided to return again to emergency room at that point she was admitted to medical floor she was started on IV Levaquin and IV Flagyl, gastroenterology consultation was requested. She was evaluated in the emergency room vital examination on presentation revealed a temperature of 98.5 pulse 104 respiration 18 blood pressure 108/73 pulse ox 97% on room air Laboratory data revealed a white blood count of 11.2 hemoglobin 15.0 platelet count 208 sodium 139 potassium 4.1 chloride 108 CO2 17 BUN 10 creatinine 0.67 urine analysis revealed evidence of urinary tract infection test was negative Harmon virus PCR was negative Past medical history is significant for asthma and occasional back pain, her past surgical history is significant for left hip surgery right knee surgery On 06/12/2021 patient is alert and oriented 3. Patient is still having abdominal discomfort with occasional diarrhea and nausea. Patient remains on IV Levaquin and IV Flagyl. C. diff was negative. GI services are following. She remains on full liquid diet. Temperature 97.9, heart rate 67, respiratory rate 20, blood pressure 112 or 75 and pulse ox 98% on room air. Awaiting further recommendations from GI services. At this time patient denies chest pain or shortness breath. Patient denies any urinary burning or frequency Objective - Vital Signs Vital signs: Vital Signs Temp 97.9 F 06/12/21 08:43 Pulse 67 06/12/21 08:43 Resp 20 06/12/21 08:43 BP 112/75 06/12/21 08:43 Pulse Ox 98 06/12/21 08:43 Intake & Output 06/11/21 06/12/21 06/12/21 18:59 06:59 18:59 Other: Voiding Method Toilet # Voids 2 1 1 # Bowel Movements 1 1 - Exam In general patient is alert and oriented x 3 in no distress HEENT head normocephalic and atraumatic Neck is supple no JVD no goiter no lymphadenopathy no carotid bruit Chest examination is clear to auscultation no crackles no wheezing Cardiac exam reveals regular heart sounds S1 and S2 no gallops no murmurs Abdomen is soft nontender no organomegaly with normal bowel sounds Extremity exam reveals no edema no cyanosis or clubbing Neurological examination reveals no gross focal deficits - Labs CBC & Chem 7: 06/12/21 05:49 06/12/21 05:49 Labs: Abnormal Lab Results - Last 24 Hours (Table) 06/12/21 Range/Units 05:49 Chloride 115 H (98-107) mmol/L Carbon Dioxide 17 L (22-30) mmol/L BUN 4 L (7-17) mg/dL Total Protein 5.5 L (6.3-8.2) g/dL Albumin 3.1 L (3.5-5.0) g/dL Microbiology - Last 24 Hours (Table) 06/10/21 16:43 Urine Culture - Final Urine,Voided 06/11/21 16:55 Stool Culture - Preliminary Stool 06/10/21 19:22 Blood Culture - Preliminary Blood No Growth after 24 hours 06/10/21 20:09 Blood Culture - Preliminary Blood No Growth after 24 hours Assessment and Plan Plan: Abdominal pain and nausea acute colitis seen on CT scan was failed outpatient treatment Underlying history of asthma Underlying history of joint pain with multiple joint surgeries in the past At this time patient is admitted to medical floor She is being treated symptomatically for abdominal pain and nausea Currently on Levaquin and IV Flagyl GI services following Stool for C. diff negative Repeat labs ordered for a.m.
[2021-06-12] MEDS: LEVOFLOXACIN 500MG-D5W PMX 500 MG in DEXTROSE/WATER 1 100ML.BAG IVPB SCH (19:33)
[2021-06-13] MEDS: KETOROLAC 15 MG/ML 1 ML VIAL IVP SCH ×4 (00:07→18:26)
[2021-06-13] MEDS: metroNIDAZOLE-NS PMX 500 MG in SALINE 1 100ML.BAG IVPB SCH ×3 (02:24→18:26)
[2021-06-13] MEDS: SODIUM CHLORIDE 0.9% 1,000 ML IV SCH ×3 (02:25→20:03)
[2021-06-13 06:46] LABS: Basophils % (A) 0 %; Eosinophils # (A) 0.1 k/uL (0-0.7); Eosinophils % (A) 2 %; HCT 38.4 % (34.0-46.0); HGB 12.2 gm/dL (11.4-16.0); Lymphocytes # (A) 2.2 k/uL (1.0-4.8); Lymphocytes % (A) 34 %; MCH 30.9 pg (25.0-35.0); MCHC 31.8 g/dL (31.0-37.0); MCV 97.1 fL (80.0-100.0); Mean Platelet Volume 11.6; Monocytes # (A) 0.4 k/uL (0-1.0); Monocytes % (A) 6 %; Neutrophils # (A) 3.6 k/uL (1.3-7.7); Neutrophils % (A) 56 %; Platelet Count 159 k/uL (150-450); RBC 3.96 m/uL (3.80-5.40); RDW 13.2 % (11.5-15.5); WBC 6.4 k/uL (3.8-10.6)
[2021-06-13 07:11] LABS: ALT 15 U/L (4-34); AST 17 U/L (14-36); African American GFR (CKD) >90 (>60 ml/min/1.73 sqM); Albumin 3.1 g/dL (3.5-5.0); Alkaline Phosphatase 52 U/L (38-126); Anion Gap 7 mmol/L; Blood Urea Nitrogen 2 mg/dL (7-17); Calcium 8.4 mg/dL (8.4-10.2); Carbon Dioxide 19 mmol/L (22-30); Chloride 113 mmol/L (98-107); Glucose 79 mg/dL (74-99); Non-African American GFR(CKD) >90 (>60 ml/min/1.73 sqM); Potassium 3.9 mmol/L (3.5-5.1); Sodium 139 mmol/L (137-145); Total Bilirubin 0.3 mg/dL (0.2-1.3); Total Protein 5.5 g/dL (6.3-8.2)
[2021-06-13] MEDS: LORATADINE 10 MG TAB PO SCH (08:02)
--- NOTE | 2021-06-13 14:35 | P.PN ---
Subjective Progress Note Date: 06/13/21 Judit Tirado, is a 31 years old female who presented to [facility] emergency room with a chief complaint of abdominal pain. Patient was originally seen in the emergency room 4 days prior on 06/06/2021 with similar symptoms of abdominal pain and nausea, at that time she had a computed tomography scan of the abdomen and pelvis with contrast that revealed evidence of and complicated colitis extending from the proximal transverse colon on through the mid sigmoid colon, at that time patient was discharged home, she was seen in our office the next day and I started her on a course of oral Levaquin and oral Flagyl, however her condition continued to worsen and she decided to return again to emergency room at that point she was admitted to medical floor she was started on IV Levaquin and IV Flagyl, gastroenterology consultation was requested. She was evaluated in the emergency room vital examination on presentation revealed a temperature of 98.5 pulse 104 respiration 18 blood pressure 108/73 pulse ox 97% on room air Laboratory data revealed a white blood count of 11.2 hemoglobin 15.0 platelet count 208 sodium 139 potassium 4.1 chloride 108 CO2 17 BUN 10 creatinine 0.67 urine analysis revealed evidence of urinary tract infection test was negative Harmon virus PCR was negative Past medical history is significant for asthma and occasional back pain, her past surgical history is significant for left hip surgery right knee surgery On 06/12/2021 patient is alert and oriented 3. Patient is still having abdominal discomfort with occasional diarrhea and nausea. Patient remains on IV Levaquin and IV Flagyl. C. diff was negative. GI services are following. She remains on full liquid diet. Temperature 97.9, heart rate 67, respiratory rate 20, blood pressure 112 or 75 and pulse ox 98% on room air. Awaiting further recommendations from GI services. At this time patient denies chest pain or shortness breath. Patient denies any urinary burning or frequency On 06/13/2021 patient was seen and examined on the medical floor she is alert and oriented 3 in no apparent distress she is still complaining of severe pain in the abdomen now in both the right lower quadrant and left lower quadrant, she had a computed tomography scan of the abdomen and pelvis on 06/06/2021 that revealed evidence of colitis, she received oral antibiotic Levaquin and Flagyl b ut did not have much improvement as outpatient, she was admitted with acute colitis with failure of outpatient therapy, she has been maintained on IV antibiotic Levaquin and Flagyl since admission and was seen by gastroenterology Dr. Millan, patient is stating that her symptoms are not improving, and that her abdominal pain is worsening, at this time will check computed tomography scan of the abdomen and pelvis with contrast to rule out any abscess formation or perforation, continue with current antibiotics at this time Objective - Vital Signs Vital signs: Vital Signs Temp 98.6 F 06/13/21 08:08 Pulse 61 06/13/21 08:08 Resp 18 06/13/21 08:08 BP 115/75 06/13/21 08:08 Pulse Ox 97 06/13/21 08:08 Intake & Output 06/12/21 06/13/21 06/13/21 18:59 06:59 18:59 Intake Total 1560 Balance 1560 Intake: Intake, IV Titration 1560 Amount Sodium Chloride 0.9% 1, 1560 000 ml @ 130 mls/hr IV . Q7H42M [facility] Rx#:[id number] Other: Voiding Method Toilet Toilet Toilet # Voids 1 2 1 # Bowel Movements 1 - Exam In general patient is alert and oriented x 3 in no distress HEENT head normocephalic and atraumatic Neck is supple no JVD no goiter no lymphadenopathy no carotid bruit Chest examination is clear to auscultation no crackles no wheezing Cardiac exam reveals regular heart sounds S1 and S2 no gallops no murmurs Abdomen is soft nontender no organomegaly with normal bowel sounds Extremity exam reveals no edema no cyanosis or clubbing Neurological examination reveals no gross focal deficits - Labs CBC & Chem 7: 06/13/21 05:18 06/13/21 05:18 Labs: Abnormal Lab Results - Last 24 Hours (Table) 06/13/21 Range/Units 05:18 Chloride 113 H (98-107) mmol/L Carbon Dioxide 19 L (22-30) mmol/L BUN 2 L (7-17) mg/dL Total Protein 5.5 L (6.3-8.2) g/dL Albumin 3.1 L (3.5-5.0) g/dL Microbiology - Last 24 Hours (Table) 06/10/21 19:22 Blood Culture - Preliminary Blood No Growth after 48 hours 06/10/21 20:09 Blood Culture - Preliminary Blood No Growth after 48 hours 06/10/21 16:43 Urine Culture - Final Urine,Voided Assessment and Plan Plan: Abdominal pain and nausea acute colitis seen on CT scan was failed outpatient treatment Underlying history of asthma Underlying history of joint pain with multiple joint surgeries in the past At this time patient is admitted to medical floor She is being treated symptomatically for abdominal pain and nausea Currently on Levaquin and IV Flagyl GI services following Stool for C. diff negative Repeat labs ordered for a.m.
[2021-06-13] MEDS: ONDANSETRON 4 MG/2 ML VIAL IVP PRN (14:56)
[2021-06-13] MEDS: IOPAMIDOL CONTRAST (ORAL USE) VIAL PO PRN ×2 (15:30→16:24)
--- NOTE | 2021-06-13 15:35 | P.PN ---
Subjective Progress Note Date: 06/13/21 Principal diagnosis: Abdominal pain, colitis Patient is a 31-year-old female who presented to the emergency department with complaints of abdominal pain associated with nausea and diarrhea. She had a CT of the abdomen that showed mild nonspecific colitis. She's been treated with antibiotics on Flagyl and Levaquin. Stool culture is pending, C. difficile toxin is negative as well as stool lactoferrin. Patient states she still having right lower abdominal pain but improved. Patient states she had 3 loose bowel movements yesterday, none this morning. She's been afebrile. Denies any rectal bleeding or blood in her stool. Labs are unremarkable. Patient would like to advance diet. Objective - Vital Signs Vital signs: Vital Signs Temp 98.6 F 06/13/21 08:08 Pulse 61 06/13/21 08:08 Resp 18 06/13/21 08:08 BP 115/75 06/13/21 08:08 Pulse Ox 97 06/13/21 08:08 Intake & Output 06/12/21 06/13/21 06/13/21 18:59 06:59 18:59 Intake Total 1560 Balance 1560 Intake: Intake, IV Titration 1560 Amount Sodium Chloride 0.9% 1, 1560 000 ml @ 130 mls/hr IV . Q7H42M [facility] Rx#:[id number] Other: Voiding Method Toilet Toilet # Voids 1 2 # Bowel Movements 1 - Exam General appearance: The patient is alert, oriented, appears in no acute distress. HET: Head is normocephalic and atraumatic. Conjunctiva pink. Sclera anicteric. Neck: Supple without lymphadenopathy. Abdomen: Soft, mild right lower quadrant tenderness, nondistended with bowel sounds. No guarding or rigidity. Extremities: Normal skin color and turgor. No pedal edema Skin: No rashes, no jaundice Neurological: No focal deficits. Alert and oriented 3. - Labs CBC & Chem 7: 06/13/21 05:18 06/13/21 05:18 Labs: Abnormal Lab Results - Last 24 Hours (Table) 06/13/21 Range/Units 05:18 Chloride 113 H (98-107) mmol/L Carbon Dioxide 19 L (22-30) mmol/L BUN 2 L (7-17) mg/dL Total Protein 5.5 L (6.3-8.2) g/dL Albumin 3.1 L (3.5-5.0) g/dL Microbiology - Last 24 Hours (Table) 06/10/21 19:22 Blood Culture - Preliminary Blood No Growth after 48 hours 06/10/21 20:09 Blood Culture - Preliminary Blood No Growth after 48 hours 06/10/21 16:43 Urine Culture - Final Urine,Voided Assessment and Plan (1) Abdominal pain Narrative/Plan: 31-year-old female who presented to the emergency department on 06/06/2021 with complaints of abdominal pain who underwent CT of the abdomen and pelvis showing mild uncomplicated colitis was then sent home. She returned yesterday with complaints of abdominal pain persisting associated with nausea but no vomiting. States she's been having 1-2 episodes of diarrhea a day. Denies any blood in her stool. Patient denies any fevers or chills. She did have a recent diagnosis of a kidney stone approximately 1 month ago which she states she has not passed. She has no history of colitis. She was started on Flagyl and Levaquin with improvement of her symptoms. No previous history of EGD or colonoscopy. She had mild leukocytosis on presentation which has improved, otherwise labs are unremarkable. Likely we are dealing with an infectious col itis. Recommend continuing Flagyl and Levaquin. May advance diet as tolerated. No plans on endoscopic evaluation. Current Visit: No Status: Acute Code(s): R10.9 - UNSPECIFIED ABDOMINAL PAIN SNOMED Code(s): 23456312 Plan: 1. Continue symptomatic and supportive care 2. Increased to low fiber, low-fat diet 3. Continue antiemetics as needed 4. Continue Flagyl and Levaquin 5. Protonix for GI prophylaxis 6. No plans on endoscopic evaluation 7. C. diff and stool culture ordered 8. If patient is able to tolerate her diet, she is cleared from gastroentero logy for discharge Thank you for this consultation, we will continue to follow. Dr. Sandeep Millan I agree with the dictator's note, documented as a scribe by Pavithra Paz.
--- NOTE | 2021-06-13 16:06 | US ---
EXAMINATION TYPE: US kidneys/renal and bladder DATE OF EXAM: 06/13/2021 COMPARISON: NONE CLINICAL HISTORY: Left flank pain and rule out kidney stone. EXAM MEASUREMENTS: Right Kidney: 11.2 x 4.6 x 5.2 cm Left Kidney: 12.2 x 5.2 x 4.6 cm Patient of large body habitus technically difficult study. Right Kidney: No hydronephrosis or masses seen Left Kidney: measures large Bladder: not fully distended Bladder limited by incomplete distention. No hydronephrosis or nephrolithiasis bilaterally. IMPRESSION: No acute process. Renal calculus noted by recent CT scan not noted by ultrasound.
[2021-06-13 16:08] LABS: Appearance,Urine Clear (Clear); Bacteria,Urine Many /hpf; Bilirubin,Urine Negative (Negative); Blood,Urine Small (Negative); Color,Urine Light Yellow; Glucose,Urine (UA) Negative (Negative); Ketones,Urine 1+ (Negative); Leukocyte Esterase,Urine Trace (Negative); Mucus,Urine Rare /hpf; Nitrite,Urine Negative (Negative); PH, Urine 6.5 (5.0-8.0); Protein,Urine Negative (Negative); RBC,Urine 1 /hpf (0-5); Specific Gravity,Urine 1.006 (1.001-1.035); Squamous Epithelial Cell,Urine 1 /hpf (0-4); Urobilinogen,Urine <2.0 mg/dL (<2.0); WBC,Urine 2 /hpf (0-5)
[2021-06-13] MEDS: LEVOFLOXACIN 500MG-D5W PMX 500 MG in DEXTROSE/WATER 1 100ML.BAG IVPB SCH (17:26)
[2021-06-14] MEDS: ONDANSETRON 4 MG/2 ML VIAL IVP PRN (00:33)
[2021-06-14] MEDS: SODIUM CHLORIDE 0.9% 1,000 ML IV SCH (00:34)
[2021-06-14] MEDS: metroNIDAZOLE-NS PMX 500 MG in SALINE 1 100ML.BAG IVPB SCH (02:04)
--- NOTE | 2021-06-14 03:18 | CT ---
EXAMINATION TYPE: CT abdomen pelvis w con DATE OF EXAM: 06/13/2021 COMPARISON: 06/06/2021 HISTORY: Colitis, rule out abscess. CT DLP: 1348.30 mGycm Automated exposure control for dose reduction was used. CONTRAST: Performed with IV Contrast, patient injected with 100 mL of Isovue 300. Lung bases are clear of infiltrate. There is small left pleural effusion. Heart size is normal. There is no pericardial effusion. Liver spleen pancreas gallbladder appear intact. Stomach is intact. The bile ducts are not dilated. There is no adrenal mass. Kidneys show satisfactory contrast opacification. There is no hydronephrosi s. There is 4 mm calculus posterior right kidney. Ureters are not dilated. There is no retroperitonea l adenopathy. Bladder distends smoothly. There is no inguinal hernia. There is no free fluid in the p alvaro. Uterus is anteverted. Lumbar vertebra have normal spacing and alignment. Posterior elements are intact. There is no zina daisy fracture. Bony pelvis is intact. The hip joints are intact. I see no mesenteric edema. There is no ascites or free air. There is no bowel obstruction. I see no i ntestinal wall thickening. There is scattered colonic diverticula. There is oral contrast extending t o the proximal sigmoid colon. The appendix appears normal. IMPRESSION: No evidence of colitis. There are a few scattered large bowel diverticula. No evidence of diverticuli tis. There is a small left pleural effusion which is new compared to recent exam.
[2021-06-14 08:22] VITALS: BP 116/74; PULSE 59; RESP 16; TEMP 98.5
[2021-06-14] MEDS: LORATADINE 10 MG TAB PO SCH (08:27)
--- NOTE | 2021-06-14 09:44 | P.DS ---
Providers Date of admission: 06/12/21 11:07 Expected date of discharge: 06/14/21 Attending physician: Alyssa Echevarria Consults: 06/10/21 18:50 Consult Physician Routine Consulting Provider: Stacy Millan Consult Reason/Comments: Colitis Do you want consulting provider notified?: Yes Primary care physician: Alyssa Echevarria [facility] Course: Discharge diagnosis Abdominal pain and nausea acute colitis seen on CT scan was failed outpatient treatment Underlying history of asthma Underlying history of joint pain with multiple joint surgeries in the past Stool for C. diff negative Ultrasound of kidneys and renal completed showing no acute process Abdomen and pelvis repeat CT completed showing no evidence of colitis there are few scattered large bowel diverticula. no evidence of diverticulitis Hospital course Judit Tirado, is a 31 years old female who presented to [facility] emergency room with a chief complaint of abdominal pain. Patient was originally seen in the emergency room 4 days prior on 06/06/2021 with similar symptoms of abdominal pain and nausea, at that time she had a computed tomography scan of the abdomen and pelvis with contrast that revealed evidence of and complicated colitis extending from the proximal transverse colon on through the mid sigmoid colon, at that time patient was discharged home, she was seen in our office the next day and I started her on a course of oral Levaquin and oral Flagyl, however her condition continued to worsen and she decided to return again to emergency room at that point she was admitted to medical floor she was started on IV Levaquin and IV Flagyl, gastroenterology consultation was requested. She was evaluated in the emergency room vital examination on presentation revealed a temperature of 98.5 pulse 104 respiration 18 blood pressure 108/73 pulse ox 97% on room air Laboratory data revealed a white blood count of 11.2 hemoglobin 15.0 platelet count 208 sodium 139 potassium 4.1 chloride 108 CO2 17 BUN 10 creatinine 0.67 urine analysis revealed evidence of urinary tract infection test was negative Harmon virus PCR was negative Past medical history is significant for asthma and occasional back pain, her past surgical history is significant for left hip surgery right knee surgery On 06/12/2021 patient is alert and oriented 3. Patient is still having abdominal discomfort with occasional diarrhea and nausea. Patient remains on IV Levaquin and IV Flagyl. C. diff was negative. GI services are following. She remains on full liquid diet. Temperature 97.9, heart rate 67, respiratory rate 20, blood pressure 112 or 75 and pulse ox 98% on room air. Awaiting further recommendations from GI services. At this time patient denies chest pain or shortness breath. Patient denies any urinary burning or frequency On 06/13/2021 patient was seen and examined on the medical floor she is alert and oriented 3 in no apparent distress she is still complaining of severe pain in the abdomen now in both the right lower quadrant and left lower quadrant, she had a computed tomography scan of the abdomen and pelvis on 06/06/2021 that revealed evidence of colitis, she received oral antibiotic Levaquin and Flagyl but did not have much improvement as outpatient, she was admitted with acute colitis with failure of outpatient therapy, she has been maintained on IV antibiotic Levaquin and Flagyl since admission and was seen by gastroenterology Dr. Millan, patient is stating that her symptoms are not improving, and that her abdominal pain is worsening, at this time will check computed tomography scan of the abdomen and pelvis with contrast to rule out any abscess formation or perforation, continue with current antibiotics at this time On 06/14/2021 patient alert and oriented 3. Repeat computed tomography scan completed findings involve ultrasound also completed with no acute process. Patient has been tolerating low fiber diet. Patient is still complaining of occasional abdominal pain and nausea. At this time patient will be DC'd home on antibiotics and will follow up with PCP and GI services outpatient for further workup. Patient denies chest pain. Patient denies shortness breath. Patient denies any urinary burning or frequency Patient Condition at Discharge: Stable Plan - Discharge Summary Discharge Rx Participant: No New Discharge Prescriptions: Continue medroxyPROGESTERone [Depo-Provera] 150 mg IM Q90D Cetirizine HCl [Zyrtec] 10 mg PO DAILY Dicyclomine [Bentyl] 20 mg PO TID PRN #20 tablet PRN Reason: abdominal pain Ondansetron [Zofran ODT] 4 mg PO Q8HR PRN #15 tab PRN Reason: Nausea Ibuprofen 800 mg PO TID-W/MEALS metroNIDAZOLE [Flagyl] 500 mg PO Q8H 7 Days #21 tab Tamsulosin HCl [Flomax] 0.4 mg PO DAILY levoFLOXacin 500 mg PO DAILY 7 Days #7 tab Discharge Medication List medroxyPROGESTERone [Depo-Provera] 150 mg IM Q90D 03/06/21 [History] Cetirizine HCl [Zyrtec] 10 mg PO DAILY 06/06/21 [History] Dicyclomine [Bentyl] 20 mg PO TID PRN #20 tablet 06/06/21 [Rx] Ondansetron [Zofran ODT] 4 mg PO Q8HR PRN #15 tab 06/06/21 [Rx] Ibuprofen 800 mg PO TID-W/MEALS 06/10/21 [History] Tamsulosin HCl [Flomax] 0.4 mg PO DAILY 06/10/21 [History] levoFLOXacin 500 mg PO DAILY 7 Days #7 tab 06/14/21 [Rx] metroNIDAZOLE [Flagyl] 500 mg PO Q8H 7 Days #21 tab 06/14/21 [Rx] Follow up Appointment(s)/Referral(s): Stacy Millan MD [STAFF PHYSICIAN] - 1 Week Alyssa Echevarria MD [Primary Care Provider] - 1-2 days Activity/Diet/Wound Care/Special Instructions: Low fiber/fat diet Activity as tolerated Discharge Disposition: HOME SELF-CARE
--- NOTE | 2021-06-14 12:06 | P.PN ---
Subjective Progress Note Date: 06/14/21 Principal diagnosis: Abdominal pain, colitis Patient is a 31-year-old female who presented to the emergency department with complaints of abdominal pain associated with nausea and diarrhea. She had a CT of the abdomen that showed mild nonspecific colitis. She's been treated with antibiotics on Flagyl and Levaquin. Stool culture is negative, C. difficile toxin is negative as well as stool lactoferrin. Patient was still complaining of lower abdominal pain yesterday and a repeat CT of the abdomen and pelvis was completed with no evidence of colitis, with few scattered large bowel diverticula. No evidence of diverticulitis. Patient states still having some lower discomfort, however improved. Had one loose bowels this morning with no blood. Mild nausea but no vomiting. Has been eating 75% of her trays. Objective - Vital Signs Vital signs: Vital Signs Temp 98.5 F 06/14/21 07:48 Pulse 59 L 06/14/21 07:48 Resp 16 06/14/21 07:48 BP 116/74 06/14/21 07:48 Pulse Ox 98 06/14/21 07:48 Intake & Output 06/13/21 06/14/21 06/14/21 18:59 06:59 18:59 Intake Total 1170 Output Total 1 Balance 1170 -1 Intake: Intake, IV Titration 1170 Amount Sodium Chloride 0.9% 1, 1170 000 ml @ 130 mls/hr IV . [id number] [facility] Rx#:[id number] Output: Urine 1 Other: Voiding Method Toilet Toilet Toilet # Voids 1 2 # Bowel Movements 1 1 - Exam General appearance: The patient is alert, oriented, appears in no acute distress. HET: Head is normocephalic and atraumatic. Conjunctiva pink. Sclera anicteric. Neck: Supple without lymphadenopathy. Abdomen: Soft, mild left lower quadrant tenderness, nondistended with bowel sounds. No guarding or rigidity. Extremities: Normal skin color and turgor. No pedal edema Skin: No rashes, no jaundice Neurological: No focal deficits. Alert and oriented 3. - Labs CBC & Chem 7: 06/13/21 05:18 06/13/21 05:18 Labs: Abnormal Lab Results - Last 24 Hours (Table) 06/13/21 Range/Units 15:58 Urine Ketones 1+ H (Negative) Urine Blood Small H (Negative) Ur Leukocyte Esterase Trace H (Negative) Urine Bacteria Many H (None) /hpf Urine Mucus Rare H (None) /hpf Microbiology - Last 24 Hours (Table) 06/10/21 19:22 Blood Culture - Preliminary Blood No Growth after 72 hours 06/10/21 20:09 Blood Culture - Preliminary Blood No Growth after 72 hours 06/11/21 16:55 Stool Culture - Preliminary Stool Assessment and Plan (1) Abdominal pain Narrative/Plan: 31-year-old female who presented to the emergency department on 06/06/2021 with complaints of abdominal pain who underwent CT of the abdomen and pelvis showing mild uncomplicated colitis was then sent home. She returned yesterday with complaints of abdominal pain persisting associated with nausea but no vomiting. States she's been having 1-2 episodes of diarrhea a day. Denies any blood in her stool. Patient denies any fevers or chills. She did have a recent diagnosis of a kidney stone approximately 1 month ago which she states she has not passed. She has no history of colitis. She was started on Flagyl and Levaquin with improvement of her symptoms. No previous history of EGD or colonoscopy. She had mild leukocytosis on presentation which has improved, otherwise labs are unremarkable. Likely we are dealing with an infectious coli tis. Recommend continuing Flagyl and Levaquin. May advance diet as tolerated. No plans on endoscopic evaluation. Current Visit: No Status: Acute Code(s): R10.9 - UNSPECIFIED ABDOMINAL PAIN SNOMED Code(s): 00855184 Plan: 1. Continue symptomatic and supportive care 2. Continue low fiber, low-fat diet 3. Continue antiemetics as needed 4. Continue Bentyl as ordered 5. Protonix for GI prophylaxis 6. No plans on endoscopic evaluation 7. C. diff and stool culture ordered, negative 8. Patient is stable for discharge from gastroenterology, she may follow-up in 1-2 weeks. Thank you for allowing us to participate in the care of the patient, the GI service will sign off, gastroenterology will not be available at the hospital this weekend and through next week. If further evaluation by gastroenterology is required the patient will need transfer as per the primary team's discretion. Dr. Sandeep Millan I agree with the dictator's note, documented as a scribe by Pavithra Paz.
== END 2021-06-14 12:19 | disposition home or self-care (01) | DRG 392 ==
LOC: EC 13:53 → 6NMEDSUR 19:08 → 6PED 21:02 → OBSVTOIN 06-12 11:07
PROVIDERS: ADMIT Internal Medicine; ATTEND Internal Medicine
DX: A09 Infectious gastroenteritis and colitis, unspecified (principal); J45.909 Unspecified asthma, uncomplicated; K57.90 Diverticulosis of intestine, part unspecified, without perforation or abscess without bleeding; N20.0 Calculus of kidney; Z79.899 Other long term (current) drug therapy; M25.50 Pain in unspecified joint; M54.9 Dorsalgia, unspecified; Z20.822 Contact with and (suspected) exposure to COVID-19
CPT/HCPCS: 36415; 74177; 76770; 80053; 81001; 81025; 83630; 85025; 85610; 85730; 87040; 87045; 87046; 87086; 87324; 87635; 96361; 96374; 96375; 99284

== ENCOUNTER 2021-12-23 13:55 | Emergency (ER) | payer OTHER ==
[2021-12-23 14:58] LABS: Basophils # (A) 0.1 k/uL (0-0.2); Basophils % (A) 1 %; Eosinophils # (A) 0.2 k/uL (0-0.7); Eosinophils % (A) 3 %; HCT 43.7 % (34.0-46.0); Lymphocytes # (A) 1.6 k/uL (1.0-4.8); Lymphocytes % (A) 18 %; MCH 30.7 pg (25.0-35.0); Mean Platelet Volume 10.2; Monocytes # (A) 0.5 k/uL (0-1.0); Monocytes % (A) 5 %; Neutrophils # (A) 6.5 k/uL (1.3-7.7); Neutrophils % (A) 72 %; Platelet Count 204 k/uL (150-450); RBC 4.56 m/uL (3.80-5.40); RDW 12.7 % (11.5-15.5)
[2021-12-23 15:01] LABS: Appearance,Urine Clear (Clear); Bacteria,Urine Occasional /hpf; Bilirubin,Urine Negative (Negative); Blood,Urine Moderate (Negative); Color,Urine Yellow; Glucose,Urine (UA) Negative (Negative); Ketones,Urine Negative (Negative); Leukocyte Esterase,Urine Negative (Negative); Mucus,Urine Rare /hpf; Nitrite,Urine Negative (Negative); PH, Urine 6.5 (5.0-8.0); Protein,Urine Negative (Negative); RBC,Urine 17 /hpf (0-5); Specific Gravity,Urine 1.025 (1.001-1.035); Squamous Epithelial Cell,Urine 1 /hpf (0-4); WBC,Urine 1 /hpf (0-5)
[2021-12-23] MEDS ORDERED: ONDANSETRON 4 MG/2 ML VIAL IVP STA (15:01)
[2021-12-23] MEDS ORDERED: SODIUM CHLORIDE 0.9% 1,000 ML IV STA (15:02)
--- NOTE | 2021-12-23 15:03 | ED ---
General Adult HPI - General Chief complaint: Abdominal Pain Stated complaint: Right Side Pain Time Seen by Provider: 12/23/21 14:48 Source: patient Mode of arrival: ambulatory Limitations: no limitations - History of Present Illness Initial comments: This 31-year-old female with past medical history of kidney stones presents to the emergency department with right lower quadrant pain radiating to her back that began last night. She states she has experienced similar symptoms when she had a kidney stone prior. Patient describes the pain as aching and dull in nature. Patient states she can't seem to get comfortable and the pain worsens with movement. Patient states she did take Motrin which did seem to help her pain. Patient states her pain is currently 8/10 in her right lower quadrant and began radiating to her back today. Patient states it feels similar to her past kidney stones. Patient denies any fever, nausea, vomiting, diarrhea. Patient denies any chest pain, shortness of breath, change in bowel or bladder, change in appetite, change in vision, low back pain, bowel or bladder retention/incontinence, saddle anesthesia, pelvic pain, headache, lightheadedness, dizziness. - Related Data Home Medications Medication Instructions Recorded Confirmed medroxyPROGESTERone [Depo-Provera] 150 mg IM Q90D 03/06/21 12/23/21 Cetirizine HCl [Zyrtec] 10 mg PO DAILY PRN 06/06/21 12/23/21 Albuterol Sulfate [Proair Hfa] 2 puff INHALATION RT-Q4H PRN 12/23/21 12/23/21 Butalb/Acetaminophen/Caffeine 1 tab PO BID PRN 12/23/21 12/23/21 [Esgic 50-325-40 mg Tablet] Ibuprofen [Motrin] 800 mg PO Q8H PRN 12/23/21 12/23/21 Allergies Allergy/AdvReac Type Severity Reaction Status Date / Time fentanyl Allergy Anaphylaxis Verified 12/23/21 16:47 morphine Allergy Rash/Hives Verified 12/23/21 16:47 Penicillins Allergy Unknown Verified 12/23/21 16:47 Childhood Review of Systems ROS Statement: Those systems with pertinent positive or pertinent negative responses have been documented in the HPI. ROS Other: All systems not noted in ROS Statement are negative. Past Medical History Past Medical History: Asthma Additional Past Medical History / Comment(s): back pain, seasonal allergies History of Any Multi-Drug Resistant Organisms: None Reported Past Surgical History: Orthopedic Surgery Additional Past Surgical History / Comment(s): LEFT HIP SURG; RIGHT KNEE SURG Past Anesthesia/Blood Transfusion Reactions: No Reported Reaction Past Psychological History: No Psychological Hx Reported Smoking Status: Never smoker Past Alcohol Use History: None Reported Past Drug Use History: None Reported - Past Family History Mother Family Medical History: No Reported History Father Family Medical History: No Reported History General Exam Limitations: no limitations General appearance: alert, in no apparent distress Head exam: Present: atraumatic, normocephalic, normal inspection Eye exam: Present: normal appearance, PERRL, EOMI. Absent: scleral icterus, conjunctival injection, periorbital swelling ENT exam: Present: normal exam, mucous membranes moist Neck exam: Present: normal inspection, full ROM. Absent: tenderness, meningismus, lymphadenopathy Respiratory exam: Present: normal lung sounds bilaterally. Absent: respiratory distress, wheezes, rales, rhonchi, stridor, chest wall tenderness Cardiovascular Exam: Present: regular rate, normal rhythm, normal heart sounds. Absent: systolic murmur, diastolic murmur, rubs, gallop, clicks GI/Abdominal exam: Present: soft, tenderness (Right lower quadrant tenderness to palpation), normal bowel sounds. Absent: distended, guarding, rebound, rigid Extremities exam: Present: normal inspection, full ROM, normal capillary refill. Absent: tenderness, pedal edema, joint swelling, calf tenderness Back exam: Present: normal inspection, full ROM, CVA tenderness (R). Absent: CVA tenderness (L), paraspinal tenderness, vertebral tenderness Neurological exam: Present: alert, oriented X3, CN II-XII intact Psychiatric exam: Present: normal affect, normal mood Skin exam: Present: warm, dry, intact, normal color. Absent: rash Course Vital Signs 12/23/21 13:59 Temperature 98.4 F Pulse Rate 97 Respiratory 18 Rate Blood Pressure 106/74 O2 Sat by Pulse 96 Oximetry Medical Decision Making - Medical Decision Making This 31-year-old female presents emergency Department with right lower quadrant pain radiating to her back times one day. CT abdomen and pelvis with nonobstructive punctate renal calculus is present at midpole measuring approximately 3 mm. Labs with white blood cells 9.0, urine with moderate blood, occasional bacteria, urine hCG not detected. Patient is currently on her menstrual cycle. After receiving Toradol and fluids, patient states her pain significantly decreased down to 3/10. Patient states she does have Motrin and Zofran at home. I instructed patient to follow-up with primary care provider next 1-2 days. Strict return precautions were discussed. Patient verbally agreed to plan. Patient sent home in stable condition. Case discussed in detail with my attending, Dr. Liu. - Lab Data Result diagrams: 12/23/21 14:47 12/23/21 15:00 Lab Results 12/23/21 12/23/21 12/23/21 Range/Units 14:32 14:32 14:47 WBC 9.0 (3.8-10.6) k/uL RBC 4.56 (3.80-5.40) m/uL Hgb 14.0 (11.4-16.0) gm/dL Hct 43.7 (34.0-46.0) % MCV 96.0 (80.0-100.0) fL MCH 30.7 (25.0-35.0) pg MCHC 32.0 (31.0-37.0) g/dL RDW 12.7 (11.5-15.5) % Plt Count 204 (150-450) k/uL MPV 10.2 Neutrophils % 72 % Lymphocytes % 18 % Monocytes % 5 % Eosinophils % 3 % Basophils % 1 % Neutrophils # 6.5 (1.3-7.7) k/uL Lymphocytes # 1.6 (1.0-4.8) k/uL Monocytes # 0.5 (0-1.0) k/uL Eosinophils # 0.2 (0-0.7) k/uL Basophils # 0.1 (0-0.2) k/uL Sodium (137-145) mmol/L Potassium (3.5-5.1) mmol/L Chloride (98-107) mmol/L Carbon Dioxide (22-30) mmol/L Anion Gap mmol/L BUN (7-17) mg/dL Creatinine (0.52-1.04) mg/dL Est GFR (CKD-EPI)AfAm (>60 ml/min/1.73 sqM) Est GFR (CKD-EPI)NonAf (>60 ml/min/1.73 sqM) Glucose (74-99) mg/dL Plasma Lactic Acid Lex (0.7-2.0) mmol/L Calcium (8.4-10.2) mg/dL Total Bilirubin (0.2-1.3) mg/dL AST (14-36) U/L ALT (4-34) U/L Alkaline Phosphatase (38-126) U/L Total Protein (6.3-8.2) g/dL Albumin (3.5-5.0) g/dL Amylase (30-110) U/L Lipase (23-300) U/L Urine Color Yellow Urine Appearance Clear (Clear) Urine pH 6.5 (5.0-8.0) Ur Specific [place] 1.025 (1.001-1.035) Urine Protein Negative (Negative) Urine Glucose (UA) Negative (Negative) Urine Ketones Negative (Negative) Urine Blood Moderate H (Negative) Urine Nitrite Negative (Negative) Urine Bilirubin Negative (Negative) Urine Urobilinogen 3.0 (<2.0) mg/dL Ur Leukocyte Esterase Negative (Negative) Urine RBC 17 H (0-5) /hpf Urine WBC 1 (0-5) /hpf Ur Squamous Epith Cells 1 (0-4) /hpf Urine Bacteria Occasional H (None) /hpf Urine Mucus Rare H (None) /hpf Urine HCG, Qual Not Detected (Not Detectd) 12/23/21 12/23/21 Range/Units 15:00 15:00 WBC (3.8-10.6) k/uL RBC (3.80-5.40) m/uL Hgb (11.4-16.0) gm/dL Hct (34.0-46.0) % MCV (80.0-100.0) fL MCH (25.0-35.0) pg MCHC (31.0-37.0) g/dL RDW (11.5-15.5) % Plt Count (150-450) k/uL MPV Neutrophils % % Lymphocytes % % Monocytes % % Eosinophils % % Basophils % % Neutrophils # (1.3-7.7) k/uL Lymphocytes # (1.0-4.8) k/uL Monocytes # (0-1.0) k/uL Eosinophils # (0-0.7) k/uL Basophils # (0-0.2) k/uL Sodium 138 (137-145) mmol/L Potassium 3.9 (3.5-5.1) mmol/L Chloride 111 H (98-107) mmol/L Carbon Dioxide 19 L (22-30) mmol/L Anion Gap 8 mmol/L BUN 16 (7-17) mg/dL Creatinine 0.68 (0.52-1.04) mg/dL Est GFR (CKD-EPI)AfAm >90 (>60 ml/min/1.73 sqM) Est GFR (CKD-EPI)NonAf >90 (>60 ml/min/1.73 sqM) Glucose 93 (74-99) mg/dL Plasma Lactic Acid Lex 0.8 (0.7-2.0) mmol/L Calcium 8.5 (8.4-10.2) mg/dL Total Bilirubin 0.4 (0.2-1.3) mg/dL AST 21 (14-36) U/L ALT 17 (4-34) U/L Alkaline Phosphatase 74 (38-126) U/L Total Protein 6.8 (6.3-8.2) g/dL Albumin 3.9 (3.5-5.0) g/dL Amylase 70 (30-110) U/L Lipase 165 (23-300) U/L Urine Color Urine Appearance (Clear) Urine pH (5.0-8.0) Ur Specific [place] (1.001-1.035) Urine Protein (Negative) Urine Glucose (UA) (Negative) Urine Ketones (Negative) Urine Blood (Negative) Urine Nitrite (Negative) Urine Bilirubin (Negative) Urine Urobilinogen (<2.0) mg/dL Ur Leukocyte Esterase (Negative) Urine RBC (0-5) /hpf Urine WBC (0-5) /hpf Ur Squamous Epith Cells (0-4) /hpf Urine Bacteria (None) /hpf Urine Mucus (None) /hpf Urine HCG, Qual (Not Detectd) Disposition Clinical Impression: Abdominal pain, Nephrolithiasis Disposition: HOME SELF-CARE Condition: Stable Instructions (If sedation given, give patient instructions): Abdominal Pain (ED) Additional Instructions: Please follow-up with your primary care provider next 1-2 days. Return to the emergency department with any new, worsening or concerning symptoms. Take Criseldaan as directed that you have at home already. Is patient prescribed a controlled substance at d/c from ED?: No Referrals: Alyssa Echevarria MD [Primary Care Provider] - 1-2 days Time of Disposition: 16:42
[2021-12-23 15:27] LABS: ALT 17 U/L (4-34); AST 21 U/L (14-36); African American GFR (CKD) >90 (>60 ml/min/1.73 sqM); Albumin 3.9 g/dL (3.5-5.0); Alkaline Phosphatase 74 U/L (38-126); Amylase 70 U/L (30-110); Anion Gap 8 mmol/L; Blood Urea Nitrogen 16 mg/dL (7-17); Calcium 8.5 mg/dL (8.4-10.2); Carbon Dioxide 19 mmol/L (22-30); Chloride 111 mmol/L (98-107); Glucose 93 mg/dL (74-99); Lipase 165 U/L (23-300); Non-African American GFR(CKD) >90 (>60 ml/min/1.73 sqM); Potassium 3.9 mmol/L (3.5-5.1); Sodium 138 mmol/L (137-145); Total Bilirubin 0.4 mg/dL (0.2-1.3); Total Protein 6.8 g/dL (6.3-8.2)
--- NOTE | 2021-12-23 15:57 | CT ---
EXAMINATION TYPE: CT abdomen pelvis w con DATE OF EXAM: 12/23/2021 COMPARISON: CT 06/13/2021 HISTORY: Abdominal pain with nausea. CT DLP: 1458.8 mGycm Automated exposure control for dose reduction was used. TECHNIQUE: Helical acquisition of images from the lung bases through the pelvis have been completed. CONTRAST: Performed without Oral Contrast and with IV Contrast, patient injected with 100 mL of Isovue 300. FINDINGS: Umbilical hernia contains fat. LUNG BASES: No significant abnormality is appreciated. AORTA: No significant abnormality is appreciated. LIVER/GB: No significant abnormality is appreciated. PANCREAS: No significant abnormality is seen. SPLEEN: No significant abnormality is seen. ADRENALS: No significant abnormality is seen. KIDNEYS: There is a retroaortic left renal vein. Nonobstructive punctate right renal calculus is pres ent at the midpole measuring only approximately 3 mm. REPRODUCTIVE ORGANS: No significant abnormality is seen BOWEL: Diverticular changes are present, there is no evident bowel obstruction. The appendix shows n o inflammatory change. FREE AIR: No Free Air visible. ASCITES: None visible. PELVIC ADENOPATHY: None visualized. RETROPERITONEAL ADENOPATHY: No Retroperitoneal Adenopathy visible. URINARY BLADDER: No significant abnormality is seen. OSSEOUS STRUCTURES: No significant abnormality is seen. IMPRESSION: DIVERTICULOSIS. NONOBSTRUCTIVE RIGHT NEPHROLITHIASIS AGAIN NOTED.
[2021-12-23] MEDS ORDERED: KETOROLAC 15 MG/ML 1 ML VIAL IVP STA (16:04)
[2021-12-23 16:59] VITALS: BP 119/60; PULSE 77; RESP 20; TEMP 98.5
== END 2021-12-23 17:02 | disposition home or self-care (01) ==
LOC: EC 13:55
DX: N20.0 Calculus of kidney (principal); J45.909 Unspecified asthma, uncomplicated; Z88.0 Allergy status to penicillin; Z88.5 Allergy status to narcotic agent
CPT/HCPCS: 36415; 80053; 82150; 83605; 83690; 85025; 81001; 81025; 74177; 99284; 96374; 96375; 96361; J2405; J1885; Q9967

== ENCOUNTER → 2022-02-19 | Outpatient (CLI) | payer OTHER ==
--- NOTE | 2022-02-20 09:28 | XR ---
EXAM TYPE: LUMBAR SPINE X RAY SERIES COMPARISON: NONE HISTORY: 07/05/2016 TECHNIQUE: 4 views are submitted. FINDINGS: Alignment is anatomic. The pedicles are intact. The transverse processes are intact. There is no s pondylolysis or spondylolisthesis. Multiple Schmorl's nodes are seen. IMPRESSION: 1. No acute process.
== END | disposition home or self-care (01) ==
LOC: RADXRMAIN 16:14
PROVIDERS: ATTEND Internal Medicine
DX: M54.50 Low back pain, unspecified (principal)
CPT/HCPCS: 72110

== ENCOUNTER 2022-05-10 20:07 | Emergency (ER) | payer OTHER ==
[2022-05-10 20:30] VITALS: BP 119/82; PULSE 82; RESP 16; TEMP 98.2
[2022-05-10] MEDS ORDERED: traMADol 50 MG TAB PO STA (20:40)
[2022-05-10] MEDS ORDERED: CLINDAMYCIN 150 MG CAP PO STA (20:40)
--- NOTE | 2022-05-10 20:43 | ED ---
ENT HPI - General Chief complaint: Dental/Oral Stated complaint: Dental Pain Time Seen by Provider: 05/10/22 20:30 Source: patient Mode of arrival: ambulatory Limitations: no limitations - History of Present Illness Initial comments: Patient is a 32-year-old female presenting with chief complaint of dental pain. Located on the left side, pain is been ongoing for the last few days. Patient is known dental caries, states that she needs to get in to see her dentist. She denies any shortness of breath, dysphasia, headache, neck pain, vision or hearing changes, trismus sore throat chest pain, fever, chills. - Related Data Home Medications Medication Instructions Recorded Confirmed medroxyPROGESTERone [Depo-Provera] 150 mg IM Q90D 03/06/21 12/23/21 Cetirizine HCl [Zyrtec] 10 mg PO DAILY PRN 06/06/21 12/23/21 Albuterol Sulfate [Proair Hfa] 2 puff INHALATION RT-Q4H PRN 12/23/21 12/23/21 Butalb/Acetaminophen/Caffeine 1 tab PO BID PRN 12/23/21 12/23/21 [Esgic 50-325-40 mg Tablet] Ibuprofen [Motrin] 800 mg PO Q8H PRN 12/23/21 12/23/21 Previous Rx's Medication Instructions Recorded Clindamycin [Cleocin] 450 mg PO TID 10 Days #30 cap 05/10/22 Allergies Allergy/AdvReac Type Severity Reaction Status Date / Time fentanyl Allergy Anaphylaxis Verified 05/10/22 20:27 morphine Allergy Rash/Hives Verified 05/10/22 20:27 Penicillins Allergy Unknown Verified 05/10/22 20:27 Childhood Review of Systems ROS Statement: Those systems with pertinent positive or pertinent negative responses have been documented in the HPI. ROS Other: All systems not noted in ROS Statement are negative. Past Medical History Past Medical History: Asthma Additional Past Medical History / Comment(s): back pain, seasonal allergies History of Any Multi-Drug Resistant Organisms: None Reported Past Surgical History: Orthopedic Surgery Additional Past Surgical History / Comment(s): LEFT HIP SURG; RIGHT KNEE SURG Past Anesthesia/Blood Transfusion Reactions: No Reported Reaction Past Psychological History: No Psychological Hx Reported Smoking Status: Never smoker Past Alcohol Use History: None Reported Past Drug Use History: None Reported - Past Family History Mother Family Medical History: No Reported History Father Family Medical History: No Reported History General Exam Limitations: no limitations General appearance: alert, in no apparent distress Head exam: Present: atraumatic, normocephalic, normal inspection Eye exam: Present: normal appearance, EOMI. Absent: scleral icterus, periorbital swelling Expanded Mouth exam: Present: tongue normal. Absent: drooling, trismus, muffled voice Teeth exam: Present: dental caries Throat exam: normal inspection Neck exam: Present: normal inspection, full ROM. Absent: tenderness Respiratory exam: Present: normal lung sounds bilaterally. Absent: respiratory distress, wheezes, rales, rhonchi, stridor Cardiovascular Exam: Present: regular rate, normal rhythm, normal heart sounds. Absent: systolic murmur, diastolic murmur, rubs, gallop, clicks Neurological exam: Present: alert, oriented X3, CN II-XII intact Psychiatric exam: Present: normal affect, normal mood Skin exam: Present: warm, dry, intact, normal color. Absent: rash Course Vital Signs 05/10/22 20:27 Temperature 98.2 F Pulse Rate 82 Respiratory 16 Rate Blood Pressure 119/82 O2 Sat by Pulse 98 Oximetry Medical Decision Making - Medical Decision Making Patient is a 32-year-old female presenting with chief complaint of dental pain. Patient noticed increased pain and swelling over the past few days. Patient has known dental caries and does have an established dentist. On examination there is tenderness on palpation along the gumline and swelling noticeable to the left upper side of the jaw. No fever or chills. No trismus or dysphagia. No chest pain or shortness of breath. Patient is treated with clindamycin due to penicillin ALLERGY. Instructed to follow-up with her dentist on Thursday. Discussed supportive treatment with Motrin and Tylenol. Report back to ER with any new or worsening symptoms. Discussed return parameters answered all questions. Patient conveyed verbal understanding and agreed to the plan. I discussed this case with my attending Dr. Vogt. Disposition Clinical Impression: Dental abscess Disposition: HOME SELF-CARE Condition: Good Instructions (If sedation given, give patient instructions): Dental Abscess (ED) Additional Instructions: Follow-up with dentist on Thursday. Report back to ER with any new or worsening symptoms. Take antibiotic as prescribed. Take Motrin and Tylenol as needed for pain control. Prescriptions: Clindamycin [Cleocin] 450 mg PO TID 10 Days #30 cap Is patient prescribed a controlled substance at d/c from ED?: No Referrals: Alyssa Echevarria MD [Primary Care Provider] - 1-2 days
== END 2022-05-10 21:19 | disposition home or self-care (01) ==
LOC: EC 20:07
DX: K04.7 Periapical abscess without sinus (principal); Z88.0 Allergy status to penicillin; J45.909 Unspecified asthma, uncomplicated; Z88.5 Allergy status to narcotic agent
CPT/HCPCS: 99282

== ENCOUNTER 2022-08-04 10:54 | Emergency (ER) | payer OTHER ==
[2022-08-04 11:47] LABS: Appearance,Urine Cloudy (Clear); Bacteria,Urine Few /hpf; Bilirubin,Urine Negative (Negative); Blood,Urine Small (Negative); Color,Urine Yellow; Glucose,Urine (UA) Negative (Negative); Ketones,Urine Negative (Negative); Leukocyte Esterase,Urine Large (Negative); Mucus,Urine Few /hpf; Nitrite,Urine Negative (Negative); Protein,Urine Trace (Negative); RBC,Urine 10 /hpf (0-5); Specific Gravity,Urine 1.018 (1.001-1.035); Squamous Epithelial Cell,Urine 11 /hpf (0-4); Urobilinogen,Urine <2.0 mg/dL (<2.0); WBC,Urine 9 /hpf (0-5)
[2022-08-04] MEDS ORDERED: HYDROmorphone 0.5 MG/0.5 ML SYRINGE IVP STA (12:19)
[2022-08-04] MEDS ORDERED: SODIUM CHLORIDE 0.9% 1,000 ML IV STA (12:19)
--- NOTE | 2022-08-04 12:35 | ED ---
General Adult HPI - General Chief complaint: Abdominal Pain Stated complaint: left side pain Time Seen by Provider: 08/04/22 12:03 Source: patient Mode of arrival: ambulatory Limitations: no limitations - History of Present Illness Initial comments: Dictation was produced using Altar dictation software. please excuse any grammatical, word or spelling errors. Chief Complaint: 32-year-old female with past medical history of diverticulitis presents with left lower quadrant abdominal pain History of Present Illness: Patient is a 32-year-old female presents emergency department for 1 week of left lower abdominal pain. She states that her symptoms began insidiously one week ago. Today it's been very severe. She has had nausea. She does complain of some chills but denies any fevers. Patient reports history of diverticulitis. She states that she experiences exacerbations with passing of stool and urine. Denies any history of abdominal surgery. The ROS documented in this emergency department record has been reviewed and confirmed by me. Those systems with pertinent positive or negative responses have been documented in the HPI. All other systems are other negative and/or noncontributory. PHYSICAL EXAM: General Impression: Alert and oriented x3, acute distress secondary to pain HEENT: Normocephalic atraumatic, extra-ocular movements intact, pupils equal and reactive to light bilaterally, mucous membranes moist. Cardiovascular: Heart regular rate and rhythm Chest: Able to complete full sentences, no retractions, no tachypnea Abdomen: abdomen soft, palpatory tenderness to the left lower quadrant, non-distended, no organomegaly Musculoskeletal: Pulses present and equal in all extremities, no peripheral ed ayan Motor: no focal deficits noted Neurological: CN II-XII grossly intact, no focal motor or sensory deficits noted Skin: Intact with no visualized rashes Psych: Normal affect and mood ED course: 32-year-old female presents emergency department for left lower quadrant abdominal pain for 7 days. Patient reports history of diverticulitis. She states that her pain is severe. Patient does appear to be in acute distress. Vital signs upon arrival are within acceptable limits. Laboratory evaluation are obtained. CBC, metabolic panel abdominal labs are negative. Patient not . Urinalysis unremarkable. Computed tomography scan does not show an acute processes. There does appear to be a 4 mm kidney stone that is not obstructing. His hydropic gallbladder. Patient has any symptoms in her right upper quadrant. No evidence of diverticulitis. Patient observed in emergency department for approximately 3 hours and 45 minutes. She is given IV analgesics. At this point we do not have a clear source of patient's symptoms however she does not have any high-risk features and she is well-appearing at the bedside upon reevaluation at 2:40 PM. Patient agreeable with discharge. Advised follow-up with gastroenterology. - Related Data Home Medications Medication Instructions Recorded Confirmed medroxyPROGESTERone [Depo-Provera] 150 mg IM Q90D 03/06/21 08/04/22 Cetirizine HCl [Zyrtec] 10 mg PO DAILY 06/06/21 08/04/22 Ibuprofen [Motrin] 800 mg PO BID PRN 12/23/21 08/04/22 Furosemide [Lasix] 20 mg PO DAILY 08/04/22 08/04/22 Potassium Chloride ER [K-Dur 10] 10 meq PO DAILY 08/04/22 08/04/22 Allergies Allergy/AdvReac Type Severity Reaction Status Date / Time fentanyl Allergy Anaphylaxis Verified 08/04/22 13:06 morphine Allergy Rash/Hives Verified 08/04/22 13:06 Penicillins Allergy Rash/Hives Verified 08/04/22 13:06 Review of Systems ROS Statement: Those systems with pertinent positive or pertinent negative responses have been documented in the HPI. ROS Other: All systems not noted in ROS Statement are negative. Past Medical History Past Medical History: Asthma Additional Past Medical History / Comment(s): back pain, seasonal allergies History of Any Multi-Drug Resistant Organisms: None Reported Past Surgical History: Orthopedic Surgery Additional Past Surgical History / Comment(s): LEFT HIP SURG; RIGHT KNEE SURG. crainotomy Past Anesthesia/Blood Transfusion Reactions: No Reported Reaction Past Psychological History: No Psychological Hx Reported Smoking Status: Never smoker Past Alcohol Use History: None Reported Past Drug Use History: None Reported - Past Family History Mother Family Medical History: No Reported History Father Family Medical History: No Reported History General Exam Limitations: no limitations Course Vital Signs 08/04/22 11:11 Temperature 98.9 F Pulse Rate 100 Respiratory 20 Rate Blood Pressure 120/77 O2 Sat by Pulse 98 Oximetry Medical Decision Making - Lab Data Result diagrams: 08/04/22 12:23 08/04/22 12:23 Lab Results 08/04/22 08/04/2222 Range/Units 11:15 12:23 12:23 WBC 7.3 (3.8-10.6) k/uL RBC 4.51 (3.80-5.40) m/uL Hgb 14.0 (11.4-16.0) gm/dL Hct 42.5 (34.0-46.0) % MCV 94.2 (80.0-100.0) fL MCH 31.1 (25.0-35.0) pg MCHC 33.0 (31.0-37.0) g/dL RDW 12.9 (11.5-15.5) % Plt Count 228 (150-450) k/uL MPV 10.5 Neutrophils % 73 % Lymphocytes % 19 % Monocytes % 5 % Eosinophils % 1 % Basophils % 1 % Neutrophils # 5.3 (1.3-7.7) k/uL Lymphocytes # 1.4 (1.0-4.8) k/uL Monocytes # 0.4 (0-1.0) k/uL Eosinophils # 0.1 (0-0.7) k/uL Basophils # 0.0 (0-0.2) k/uL Sodium 142 (137-145) mmol/L Potassium 3.9 (3.5-5.1) mmol/L Chloride 110 H (98-107) mmol/L Carbon Dioxide 23 (22-30) mmol/L Anion Gap 9 mmol/L BUN 10 (7-17) mg/dL Creatinine 0.70 (0.52-1.04) mg/dL Est GFR (CKD-EPI)AfAm >90 (>60 ml/min/1.73 sqM) Est GFR (CKD-EPI)NonAf >90 (>60 ml/min/1.73 sqM) Glucose 93 (74-99) mg/dL Plasma Lactic Acid Lex (0.7-2.0) mmol/L Calcium 8.8 (8.4-10.2) mg/dL Total Bilirubin 0.4 (0.2-1.3) mg/dL AST 19 (14-36) U/L ALT 22 (4-34) U/L Alkaline Phosphatase 78 (38-126) U/L Total Protein 6.9 (6.3-8.2) g/dL Albumin 4.4 (3.5-5.0) g/dL HCG, Quant <2.4 mIU/mL Urine Color Yellow Urine Appearance Cloudy H (Clear) Urine pH 6.0 (5.0-8.0) Ur Specific [place] 1.018 (1.001-1.035) Urine Protein Trace H (Negative) Urine Glucose (UA) Negative (Negative) Urine Ketones Negative (Negative) Urine Blood Small H (Negative) Urine Nitrite Negative (Negative) Urine Bilirubin Negative (Negative) Urine Urobilinogen <2.0 (<2.0) mg/dL Ur Leukocyte Esterase Large H (Negative) Urine RBC 10 H (0-5) /hpf Urine WBC 9 H (0-5) /hpf Ur Squamous Epith Cells 11 H (0-4) /hpf Urine Bacteria Few H (None) /hpf Urine Mucus Few H (None) /hpf 08/04/22 Range/Units 12:23 WBC (3.8-10.6) k/uL RBC (3.80-5.40) m/uL Hgb (11.4-16.0) gm/dL Hct (34.0-46.0) % MCV (80.0-100.0) fL MCH (25.0-35.0) pg MCHC (31.0-37.0) g/dL RDW (11.5-15.5) % Plt Count (150-450) k/uL MPV Neutrophils % % Lymphocytes % % Monocytes % % Eosinophils % % Basophils % % Neutrophils # (1.3-7.7) k/uL Lymphocytes # (1.0-4.8) k/uL Monocytes # (0-1.0) k/uL Eosinophils # (0-0.7) k/uL Basophils # (0-0.2) k/uL Sodium (137-145) mmol/L Potassium (3.5-5.1) mmol/L Chloride (98-107) mmol/L Carbon Dioxide (22-30) mmol/L Anion Gap mmol/L BUN (7-17) mg/dL Creatinine (0.52-1.04) mg/dL Est GFR (CKD-EPI)AfAm (>60 ml/min/1.73 sqM) Est GFR (CKD-EPI)NonAf (>60 ml/min/1.73 sqM) Glucose (74-99) mg/dL Plasma Lactic Acid Lex 0.8 (0.7-2.0) mmol/L Calcium (8.4-10.2) mg/dL Total Bilirubin (0.2-1.3) mg/dL AST (14-36) U/L ALT (4-34) U/L Alkaline Phosphatase (38-126) U/L Total Protein (6.3-8.2) g/dL Albumin (3.5-5.0) g/dL HCG, Quant mIU/mL Urine Color Urine Appearance (Clear) Urine pH (5.0-8.0) Ur Specific [place] (1.001-1.035) Urine Protein (Negative) Urine Glucose (UA) (Negative) Urine Ketones (Negative) Urine Blood (Negative) Urine Nitrite (Negative) Urine Bilirubin (Negative) Urine Urobilinogen (<2.0) mg/dL Ur Leukocyte Esterase (Negative) Urine RBC (0-5) /hpf Urine WBC (0-5) /hpf Ur Squamous Epith Cells (0-4) /hpf Urine Bacteria (None) /hpf Urine Mucus (None) /hpf Disposition Clinical Impression: Abdominal pain Disposition: HOME SELF-CARE Condition: Good Instructions (If sedation given, give patient instructions): Abdominal Pain (ED) Is patient prescribed a controlled substance at d/c from ED?: No Referrals: Alyssa Echevarria MD [Primary Care Provider] - 1-2 days Stacy Millan MD [STAFF PHYSICIAN] - 1-2 days Time of Disposition: 14:40
[2022-08-04 12:41] LABS: Basophils % (A) 1 %; Eosinophils # (A) 0.1 k/uL (0-0.7); Eosinophils % (A) 1 %; HCT 42.5 % (34.0-46.0); Lymphocytes # (A) 1.4 k/uL (1.0-4.8); Lymphocytes % (A) 19 %; MCH 31.1 pg (25.0-35.0); MCV 94.2 fL (80.0-100.0); Mean Platelet Volume 10.5; Monocytes # (A) 0.4 k/uL (0-1.0); Monocytes % (A) 5 %; Neutrophils # (A) 5.3 k/uL (1.3-7.7); Neutrophils % (A) 73 %; Platelet Count 228 k/uL (150-450); RBC 4.51 m/uL (3.80-5.40); RDW 12.9 % (11.5-15.5); WBC 7.3 k/uL (3.8-10.6)
[2022-08-04 13:01] LABS: ALT 22 U/L (4-34); AST 19 U/L (14-36); African American GFR (CKD) >90 (>60 ml/min/1.73 sqM); Albumin 4.4 g/dL (3.5-5.0); Alkaline Phosphatase 78 U/L (38-126); Anion Gap 9 mmol/L; Blood Urea Nitrogen 10 mg/dL (7-17); Calcium 8.8 mg/dL (8.4-10.2); Carbon Dioxide 23 mmol/L (22-30); Chloride 110 mmol/L (98-107); Glucose 93 mg/dL (74-99); Non-African American GFR(CKD) >90 (>60 ml/min/1.73 sqM); Potassium 3.9 mmol/L (3.5-5.1); Sodium 142 mmol/L (137-145); Total Bilirubin 0.4 mg/dL (0.2-1.3); Total Protein 6.9 g/dL (6.3-8.2)
[2022-08-04 13:15] LABS: HCG,Quantitative Serum <2.4 mIU/mL
--- NOTE | 2022-08-04 13:54 | CT ---
EXAMINATION TYPE: CT abdomen pelvis w con DATE OF EXAM: 08/04/2022 COMPARISON: 12/23/2021 HISTORY: 32-year-old female severe abdominal pain, history of diverticulitis, pain TECHNIQUE: Contiguous axial scanning of the abdomen and pelvis following administration of 100 ml Iso eulalio 300 IV contrast. Delayed images through the kidneys and coronal/sagittal reconstructions perform ed. CT DLP: 1320 mGycm Automated exposure control for dose reduction was used. FINDINGS: Heart normal size with trace anterior basilar pericardial fluid. Lung bases clear without p leural effusion. No focal liver lesion. Portal venous system is patent. Bile duct upper limits of normal in caliber at 6 mm. Gallbladder mildly hydropic measuring 5.2 cm wid e but without any surrounding inflammation. Adrenal glands, left kidney, spleen, and pancreas within normal limits. 4 mm nonobstructive right mid pole renal calculus redemonstrated. Symmetric uptake and excretion of c ontrast from both kidneys. No dilated small bowel, free fluid, or free air. No mesenteric or retroperitoneal lymphadenopathy. Incidental retroaortic left renal vein. Normal appendix seen on coronal series. No significant stool burden. Scattered mild colonic diverticu losis. No pericolonic inflammatory change is seen. Bladder is urine distended. Uterus is anteverted. Both ovaries are visualized. Tiny left-sided pelvic phleboliths. No abnormal fluid collection in the pelvis or pelvic lymphadenopathy. Bones: Chronic appearing deformity of the left femoral neck. May be on a congenital or old posttrauma tic basis and can be correlated clinically. Probable postsurgical deformity anterior aspect of the le ft iliac wing. No osseous destructive process. IMPRESSION: 1. SCATTERED COLONIC DIVERTICULOSIS. NO CT EVIDENCE FOR ACUTE DIVERTICULITIS. 2. MILDLY HYDROPIC GALLBLADDER 5.2 CM WIDE BUT WITHOUT ANY SURROUNDING INFLAMMATION. FINDINGS PROBABL Y DUE TO FASTING STATE. CONSIDER CORRELATING WITH ALKALINE PHOSPHATASE AND BILIRUBIN LEVELS GIVEN PREETHI T THE BILE DUCT MEASURES AT THE UPPER LIMITS OF NORMAL IN CALIBER. 3. UNCHANGED 4 MM NONOBSTRUCTIVE RIGHT RENAL CALCULUS.
[2022-08-04 14:50] VITALS: BP 98/66; PULSE 61; RESP 16; TEMP 97.9
== END 2022-08-04 14:59 | disposition home or self-care (01) ==
LOC: EC 10:54
DX: R10.32 Left lower quadrant pain (principal); J45.909 Unspecified asthma, uncomplicated; Z79.899 Other long term (current) drug therapy; Z88.0 Allergy status to penicillin
CPT/HCPCS: 36415; 80053; 83605; 85025; 81001; 84702; 74177; 99284; 96374; 96361; J1170; Q9967

== ENCOUNTER → 2022-09-15 | Outpatient (CLI) | payer OTHER ==
--- NOTE | 2022-09-15 10:18 | US ---
EXAMINATION TYPE: US abdomen complete DATE OF EXAM: 09/15/2022 COMPARISON: CT, US CLINICAL HISTORY: R10.9 unsp abdominal pain. Pain. Hx kidney stones. TECHNIQUE: Multiple sonographic images of the abdomen are obtained. FINDINGS: EXAM MEASUREMENTS: Liver Length: 16.7 cm Gallbladder Wall: 0.27 cm CBD: 0.47 cm Spleen: 11.0 cm Right Kidney: 13.1 x 6.3 x 5.1 cm Left Kidney: 12.3 x 5.0 x 5.7 cm INTERNATIONAL LOGISTICS COORDINATOR NOTES: Limited due to gas and patient body habitus. Pancreas: Limited due to gas. Liver: Appears very coarse and heterogeneous in echotexture. Limited. Gallbladder: Fold seen. Measures 3.4 cm in transverse. Evidence for sonographic Mccollum's sign: No CBD: Portions seen appear wnl. Spleen: Appears wnl Right Kidney: Appears enlarged. Left Kidney: No hydronephrosis or masses seen Upper IVC: Appears wnl Abd Aorta: Iliacs were obscured. Proximal aorta appears ectatic. IMPRESSION: 1. No evidence for acute process. 2. No obstructive uropathy.
== END | disposition home or self-care (01) ==
LOC: RADUSWWP 09:05
PROVIDERS: ATTEND Internal Medicine Gastroenterology
DX: R10.9 Unspecified abdominal pain (principal); Z87.442 Personal history of urinary calculi
CPT/HCPCS: 76700

== ENCOUNTER → 2022-10-06 | Outpatient (CLI) | payer OTHER ==
[2022-10-06 20:20] LABS: Gliadin AB IgA, Deaminated NEGATIVE (NEGATIVE); Gliadin AB IgA, Unit <0.2 U/mL; Gliadin AB IgG, Deaminated NEGATIVE (NEGATIVE); Gliadin AB IgG, Unit <0.4 U/mL
== END ==
LOC: LABWHC1 10:49
PROVIDERS: ATTEND Nurse Practitioner Family
DX: R19.7 Diarrhea, unspecified (principal)
CPT/HCPCS: 36415; 83516; 85652; 86140

== ENCOUNTER → 2023-05-14 | Outpatient (CLI) | payer OTHER ==
--- NOTE | 2023-05-14 15:16 | P.SLEEP ---
History of Present Illness DATE: 05/14/2023 CONSULTATION/NEW PATIENT EVALUATION HISTORY OF PRESENT ILLNESS/SLEEP-WAKE EVALUATION: 33-year-old lady had been ev aluated in the sleep center for possible obstructive sleep apnea hypopnea syndrome. SLEEP SCHEDULE: Usually sleep schedule from midnight until 69 AM. FALLING ASLEEP: Sometimes patient has difficulties with the falling asleep, has TV set and bedroom. DURING SLEEP: Patient snores, grinding her teeth, has symptoms of restless legs and wakes up from sleep 2 times with one episode of nocturia. Positive history of dosing and turning during the sleep No history of hypnogogical hallucinations, sleep paralysis, or cataplexy. DURING THE DAY/WAKE STATE: In the morning patient wake up tired, falling asleep during the day, has episodes of depression and anxiety.. Torrey sleepiness scale is increased to 13. Patient may take 1 nap at afternoon. PAST MEDICAL HISTORY: Depression, chiari malformation. PAST SURGICAL HISTORY: Surgical treatment for her edema information, meniscus repair, ACL repair. MEDICATIONS: Cetirizine 10 mg once a day, bupropion 300 mg once a day, iron supplement, furosemide 20 mg once a day. SOCIAL HISTORY: Negative for smoking, alcohol consumption occasional. FAMILY HISTORY: Hypertension, hyperlipidemia. REVIEW OF SYSTEMS: Snoring, awakenings from sleep, episodes of sleepiness during the day. No fevers. No double vision. No recent chest pain. No shortness of breath. No abdominal pain. No bleeding episodes. No blood in urine. No seizure episodes. PHYSICAL EXAMINATION: GENERAL: A pleasant patient without any distress. VITAL SIGNS: BP 122/81, HR 91, RR 20, weight 234.0 pounds, height 5 foot 5 inches, body mass index 38.9. HEENT: PERRLA, EOMI. Evaluation of oropharynx showed tongue protrudes midline, low position of soft palate Mallampati 3-4. NECK: Supple. No JVD. Thyroid is not palpable. 16 inches in circumference. LUNGS: Clear to percussion and to auscultation. Good air exchange. No wheezing or rhonchi. HEART: S1, S2 regular. No murmurs, gallops or rubs. ABDOMEN: Soft and nontender. Bowel sounds are present. No organomegaly appreciated. EXTREMITIES: No clubbing or cyanosis. [employer]: Awake, alert, and oriented x3. Cranial nerves 2 to 7 intact. There is no fasciculation or atrophy noted. No focal deficits observed. ASSESSMENT: 1. Snoring, multiple awakenings from sleep, extremely low position of soft palate, wide neck 16 inches in circumference, episodes of sleepiness. Obstructive sleep apnea hypopnea syndrome. 2. Obesity BMI 38.9. 3. History of depression. 4. History of chiari malformation, status post surgical treatment. PLAN: 1. Polysomnography for evaluation of patient's breathing during sleep. 2. CPAP/BiPAP titration if sleep study confirms obstructive sleep apnea- hypopnea syndrome. 3. Preferable position during sleep on the side. 4. No driving if patient feels any sleepiness. Patient is aware of civil and criminal liability for unsafe driving. 5. Sleep hygiene with regular sleep time for at least 7.5-8 hours. 6. Watching and losing weight. Thank you very much for referring this patient for consultation. Sincerely, Shahram Azevedo MD, PhD, FAASM. Diplomat of [place] [employer], Sleep Medicine Board by [place] [employer] [place] [employer] [facility] [place] Past Medical History Past Medical History: Asthma Additional Past Medical History / Comment(s): back pain, seasonal allergies History of Any Multi-Drug Resistant Organisms: None Reported Past Surgical History: Orthopedic Surgery Additional Past Surgical History / Comment(s): LEFT HIP SURG; RIGHT KNEE SURG. crainotomy Past Anesthesia/Blood Transfusion Reactions: No Reported Reaction Past Psychological History: No Psychological Hx Reported Smoking Status: Never smoker Past Alcohol Use History: None Reported Past Drug Use History: None Reported - Past Family History Mother Family Medical History: No Reported History Father Family Medical History: No Reported History Medications and Allergies Home Medications Medication Instructions Recorded Confirmed Type medroxyPROGESTERone [Depo-Provera] 150 mg IM Q90D 03/06/21 08/04/22 History Cetirizine HCl [Zyrtec] 10 mg PO DAILY 06/06/21 08/04/22 History Ibuprofen [Motrin] 800 mg PO BID PRN 12/23/21 08/04/22 History Furosemide [Lasix] 20 mg PO DAILY 08/04/22 08/04/22 History Potassium Chloride ER [K-Dur 10] 10 meq PO DAILY 08/04/22 08/04/22 History Allergies Allergy/AdvReac Type Severity Reaction Status Date / Time fentanyl Allergy Anaphylaxis Verified 08/27/22 16:28 morphine Allergy Rash/Hives Verified 08/27/22 16:28 Penicillins Allergy Rash/Hives Verified 08/27/22 16:28 Sleep Note - Sleep Note Sleep Note: Temperature: Pulse Rate: Respiratory Rate: Blood Pressure: SpO2: Height: Weight: BMI: Neck Circumference:
== END ==
LOC: 3 N SLEEP 14:41
PROVIDERS: ATTEND Internal Medicine
DX: G47.33 Obstructive sleep apnea (adult) (pediatric) (principal); E66.9 Obesity, unspecified; F32.A Depression, unspecified; Z68.38 Body mass index [BMI] 38.0-38.9, adult; Z87.798 Personal history of other (corrected) congenital malformations; Z88.0 Allergy status to penicillin; Z88.5 Allergy status to narcotic agent; Z88.8 Allergy status to other drugs, medicaments and biological substances
CPT/HCPCS: 99211

== ENCOUNTER → 2023-06-01 | Outpatient (CLI) | payer OTHER ==
--- NOTE | 2023-06-01 12:21 | MR ---
EXAMINATION TYPE: MR brain wo con DATE OF EXAM: 06/01/2023 12:08 PM COMPARISON: 07/29/19 HISTORY: arnold chiari malformation Q07.0 Multiplanar and multispin-echo imaging of the brain was performed . The ventricles, basal cisterns and sulci overlying the cerebral convexities are within normal limits. There is no evidence for midline shift or mass effect. Acute intracranial hemorrhage or extra-axial collection is not evident. The brain parenchyma reveals no abnormal increased signal. No acute edema is identified. The paranasal sinuses and mastoid air cells are well-aerated. Low lying cerebellar tonsils compatible with Chiari Type I malformation. Decompressive craniotomy livia thompson redemonstrated. 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 Decompressive craniotomy livia thompson redemonstrated.
== END | disposition home or self-care (01) ==
LOC: RADMRIMAIN 11:14
PROVIDERS: ATTEND Psychiatry & Neurology Neurology
DX: Q07.00 Arnold-Chiari syndrome without spina bifida or hydrocephalus (principal)
CPT/HCPCS: 70551

== ENCOUNTER → 2023-10-01 | Outpatient (CLI) | payer OTHER ==
--- NOTE | 2023-10-01 14:49 | XR ---
EXAMINATION TYPE: XR chest 2V DATE OF EXAM: 10/01/2023 COMPARISON: 08/18/2016 HISTORY: 33-year-old female R05.9 COUGH, R07.9 CHEST PAIN TECHNIQUE: Frontal and lateral views FINDINGS: The cardiomediastinal silhouette, aorta, and pulmonary vasculature are within normal limits. Lungs an d pleural spaces are clear. IMPRESSION: No acute cardiopulmonary process.
== END | disposition home or self-care (01) ==
LOC: RADXRMAIN 09:57
PROVIDERS: ATTEND Internal Medicine
DX: R05.9 Cough, unspecified (principal); R07.9 Chest pain, unspecified
CPT/HCPCS: 71046